=== PATIENT | male | born 1955 | race Caucasian/White ===

== ENCOUNTER 2022-10-06 14:47 | Outpatient (REF) | payer OTHER, SELFPAY ==
[2022-10-06 16:33] LABS: MANUAL DIFF FLAG NO
[2022-10-06 16:34] LABS: Basophils Absolute Auto 0.1 X10*3/uL (0.0-0.2); Basophils Percent Auto 0.9 % (0-2); Eosinophils Absolute Auto 0.2 X10*3/uL (0.0-0.4); Hematocrit 38.1 % (42.0-52.0); Hemoglobin 12.4 g/dl (14.0-18.0); Imm Gran Abs Auto 0.02 X10*3/uL (0.00-0.03); Imm Gran Pct Auto 0.3 % (0.0-0.4); Lymphocytes Absolute Auto 2.2 X10*3/uL (1.2-4.9); Lymphocytes Percent Auto 28.2 % (20-40); Mean Corpuscular HGB Conc 32.5 g/dl (31.0-36.0); Mean Corpuscular Hemoglobin 28.8 pg (27.0-33.0); Mean Corpuscular Volume 88.6 fL (80.0-98.0); Mean Platelet Volume 11.3 fL (9.4-12.4); Monocytes Absolute Auto 0.4 X10*3/uL (0.1-1.2); Monocytes Percent Auto 5.5 % (2-11); Neutrophils Absolute Auto 4.7 x10*3/uL (2.0-8.3); Neutrophils Percent Auto 62.1 % (45-73); Platelet Count 161 X10*3/uL (160-400); Red Cell Distribution Width 13.3 % (11.0-16.0); White Blood Count 7.6 X10*3/uL (4.8-10.8)
[2022-10-06 16:42] LABS: Estimated Average Glucose 217 mg/dL; Hemoglobin A1c % 9.2 %
[2022-10-06 16:53] LABS: Alanine Aminotransferase 27 U/L (0-40); Albumin Level 4.5 g/dL (3.5-5.0); Alkaline Phosphatase 95 U/L (39-117); Anion Gap 13 (12-20); Aspartate Amino Transferase 24 U/L (5-37); Bilirubin Total 0.6 mg/dL (0.0-1.0); Blood Urea Nitrogen 10 mg/dL (9-16); Calcium 9.6 mg/dL (8.4-10.2); Carbon Dioxide 28 mmol/L (22-29); Chloride 105 mmol/L (96-108); Cholesterol 129 mg/dL; Estimated Glomerular Filt Rate > 60; Glucose Fasting 128 mg/dL (60-99); HDL Cholesterol 27 mg/dL; LDL Cholesterol Calculated 46 mg/dl; Potassium 4.3 mmol/L (3.3-5.1); Sodium 142 mmol/L (135-145); Total Protein 7.2 g/dL (6.5-8.0); Triglycerides 284 mg/dL
[2022-10-06 16:58] LABS: Appearance Urine Clear; Color Urine Yellow; Glucose Urine UA Negative (Negative); Leukocyte Esterase Urine Negative (Negative); Nitrite Urine Negative (Negative); PH 6.5 (5.0-9.0); Specific Gravity - Urine 1.015 (1.005-1.025); Urine Blood Negative (Negative); Urine Ketones Negative (Negative); Urine Protein Negative (Neg-Trace)
[2022-10-06 17:08] LABS: Prostate Specific Antigen Scr 1.73 ng/mL (<0.05-4.0); TSH reflex Free T4 2.07 uIU/mL (0.32-4.0)
[2022-10-06 17:14] LABS: Creatinine Urine 114.43 mg/dL; Microalbum/Creatinine Ratio Ur 8.7 ug/mg cr
== END 2022-10-06 14:48 | disposition home or self-care (01) ==
LOC: HO.HMGCLDS 14:47
PROVIDERS: PCP Nurse Practitioner Family; Visit Provider Nurse Practitioner Family
DX: E11.9 Type 2 diabetes mellitus without complications (principal); Z12.5 Encounter for screening for malignant neoplasm of prostate
CPT/HCPCS: 36415; 80053; 80061; 81003; 82043; 83036; 84153; 84443; 85025

== ENCOUNTER 2022-12-08 15:52 | Outpatient (REF) | payer MEDICARE, SELFPAY ==
--- NOTE | ~2022-12-08 | XR_ITS ---
EXAMINATION: XR CHEST CLINICAL INFORMATION: Personal history of pneumonia COMPARISON: 01/24/2020 TECHNIQUE: 2 views of the chest were obtained. FINDINGS: The lungs are well expanded. Mild elevation of the right hemidiaphragm. Chronic blunting at the right costophrenic angle suggestive of pleural thickening. No definite pleural effusion seen on the lateral view. No consolidation. No edema. No pneumothorax. The cardiac mediastinal silhouette is within normal limits. Degenerative changes throughout the spine. XR/XR chest 2V IMPRESSION: No acute pulmonary finding. Chronic blunting at the right costophrenic angle suggestive of pleural thickening.
== END 2022-12-08 15:53 | disposition home or self-care (01) ==
LOC: HO.HMGCX 15:52
PROVIDERS: PCP Nurse Practitioner Family; Visit Provider Nurse Practitioner Family
DX: Z87.01 Personal history of pneumonia (recurrent) (principal)
CPT/HCPCS: 71046

== ENCOUNTER 2023-01-11 14:41 | Outpatient (REF) | payer MEDICARE, SELFPAY ==
--- NOTE | ~2023-01-11 | XR_ITS ---
EXAMINATION: XR RIBS, RIGHT CLINICAL INFORMATION: Chest wall pain COMPARISON: Previous chest x-rays most recent December 2022 TECHNIQUE: 3 views of the right ribs were obtained. FINDINGS: The cardiac and mediastinal contours are stable. The lungs are clear. There is blunting of the right lateral costophrenic angle. This is similar to previous chest x-rays and probably represents pleural thickening. No definite pleural effusion. No pneumothorax. There is abnormal appearance to the right posterior seventh rib, question related to old or healing fracture. There are degenerative changes of the spine. XR/XR ribs RT min 3V w CXR1V IMPRESSION: Stable blunting of the right lateral costophrenic angle probably representing pleural thickening. Probable old or healing right posterior seventh rib fracture.
--- NOTE | ~2023-01-11 | XR_ITS ---
EXAMINATION: XR KNEE, LEFT CLINICAL INFORMATION: Pain COMPARISON: None available. TECHNIQUE: Four views of the left knee. FINDINGS: Bone alignment is normal. No fracture or dislocation. Degenerative changes at the proximal tibiofibular joint. Small osteophytes at the patellofemoral joint. Small osteophytes at the quadriceps tendon insertion to the patella and patellar tendon origin. No joint effusion. XR/XR knee LT 4V IMPRESSION: Degenerative changes.
== END 2023-01-11 14:42 | disposition home or self-care (01) ==
LOC: HO.HMGCX 14:41
PROVIDERS: PCP Nurse Practitioner Family; Visit Provider Nurse Practitioner Family
DX: R07.81 Pleurodynia (principal); M25.562 Pain in left knee
CPT/HCPCS: 71101; 73564

== ENCOUNTER → 2023-02-02 10:57 | Outpatient (REF) | payer MEDICARE, SELFPAY ==
--- NOTE | 2023-02-02 10:59 | CA_ITS ---
Transthoracic Echocardiogram Patient (Last, First, Middle): Javon Forman E Gender: Male Date of : 1955 Age: 67 Procedure Date: 02/02/2023 Procedure Type: Transthoracic Echocardiogram Location: OP Height: 180.34 cm Weight: 129.28 kg BSA: 2.45 m2 Heart Rate: bpm BP: 128 / 80 mmHg Track Superintendent: Referring MD: Rod Valencia [facility] Windows Systems Administrator: Raffi Carmen MD Symptoms: R01.1 - Cardiac murmur, unspecified Study Quality: Fair ECG Rhythm: Sinus Conclusions: - 1. Technically limited study due to body habitus, contrast could not be used due to difficult IV 2. Normal LV systolic function with mild LVH with LVEF of 55-60% with impaired relaxation filling pattern 3. Normal cardiac valvular Doppler 4. Normal RV systolic pressure 5. No gross pericardial effusion Findings Left Ventricle Normal left ventricular size and systolic function. There is mildly increased left ventricular wall thickness. The visually estimated ejection fraction is between 55-60%. Regional wall motion abnormalities can not be excluded due to suboptimal endocardial definition. Spectral Doppler is indicative of an impaired relaxation filling pattern. E/E prime ratio is between 8 and 15 consistent with indeterminate filling pressures. Right Ventricle Normal right ventricular cavity size. Atria The left atrium is normal in size. There is lipomatous hypertrophy of the interatrial septum. There is no evidence of interatrial shunt. The right atrium was not well visualized. Aortic Valve The aortic valve structure and function is likely normal. There is no aortic valve stenosis. There is no aortic valve regurgitation. Mitral Valve There is mild anterior and posterior mitral leaflet thickening. There is mild mitral annular calcification. There is trace mitral valve regurgitation. There is no mitral valve stenosis. Pulmonic Valve The pulmonic valve was not well visualized. Tricuspid Valve Likely normal tricuspid valve structure and function. There is trace tricuspid valve regurgitation. The right ventricular systolic pressure is normal. The right ventricular systolic pressure is 14 mmHg. Normal right atrial pressure. There is no evidence of pulmonary hypertension. Great Vessels All visible segments of the aorta are normal in size. The pulmonary artery was not well visualized. Venous The inferior vena cava is normal in size and collapses greater than 50% with inspiration. Pericardium/Pleural There is no evidence of pericardial effusion. Prior Study Comparison No significant change compared to prior study dated: 04/05/2017. Measurements 2D Linear Measurements IVSd: 1.34 0.6-0.9/0.6-1.0 cm LVIDd: 4.53 3.9-5.3/4.2-5.9 cm LVIDd Index: 1.85 2.4-3.2/2.2-3.1 cm/m2 LVIDs: 2.88 2.0-3.6 cm LVPWd: 1.31 0.7-1.1 cm Ao Root: 3.10 2.1-3.5 cm LA Diam: 4.00 2.7-3.8/3.0-4.0 cm LAIDs Index: 1.63 1.5-2.3 cm/m2 LV Mass: 288.27 67-162/88-224 g LV Mass Index: 117.66 43-95/49-115 g/m2 LVOT Diam: 2.10 3.0+(-)1.3 cm 2D Systolic Function EF 4C: 56.30 >55% EF 2C: 53.00 >55% Mitral Valve MV Pk E: 0.78 MV PK A: 1.17 MV Decel Time: 152.00 E/A: 0.70 E'Lateral: 7.94 E'Medial: 5.11 E/E' Med: 15.30 E/E' Lat: 9.90 PHT: 45.00 MVA PHT: 4.89 Decel Hudspeth: 5.15 Aortic Valve AoV Pk Richard: 1.51 AoV Mn Richard: 0.91 AoV VTI: 0.31 AoV Pk Grad: 9.00 Aov Mn Grad: 4.00 VANCE Cont.VTI: 1.85 LVOT LVOT Pk Richard: 0.82 LVOT Mn Richard: 0.51 LVOT VTI: 0.17 LVOT Pk Grad: 3.00 LVOT Mn Grad: 1.00 LVOT Diam: 2.10 LVOT Area: 3.46 Diastolic Function MV Pk E: 0.78 MV Pk A: 1.17 E/A: 0.70 E'Medial: 5.11 E/E' Med: 15.30 E' Laterial: 7.94 E/E' Lat: 9.90 Right Ventricle TVS' Irchard: 14.00 Tricuspid Valve TR Pk Richard: 1.69 TR Pk Grad: 11.00 RA Press: 3.00 RVSP: 14.00 Great Vessels Aorta Ao Root-2D: 3.10 2.0-3.7 cm Ao Asc: 2.70 2.1-3.4 cm Pulmonary Valve PV Pk Richard: 0.78 Peak PV Grad: 2.00 Updated in Other Vendor System with Status of Final Raffi Carmen MD electronically signed on 02/03/2023 4:00:33 PM with status of Final
== END ==
LOC: HO.CARD 10:57
PROVIDERS: PCP Nurse Practitioner Family; Visit Provider Nurse Practitioner Family
DX: R01.1 Cardiac murmur, unspecified (principal)
CPT/HCPCS: 93306

== ENCOUNTER 2023-03-26 11:49 | Outpatient (REF) | payer MEDICARE, SELFPAY ==
[2023-03-26 13:50] LABS: MANUAL DIFF FLAG NO
[2023-03-26 13:57] LABS: Basophils Absolute Auto 0.1 X10*3/uL (0.0-0.2); Eosinophils Absolute Auto 0.2 X10*3/uL (0.0-0.4); Eosinophils Percent Auto 3.7 % (0-4); Hematocrit 39.9 % (42.0-52.0); Hemoglobin 12.6 g/dl (14.0-18.0); Imm Gran Abs Auto 0.01 X10*3/uL (0.00-0.03); Imm Gran Pct Auto 0.2 % (0.0-0.4); Lymphocytes Percent Auto 33.2 % (20-40); Mean Corpuscular HGB Conc 31.6 g/dl (31.0-36.0); Mean Corpuscular Hemoglobin 28.4 pg (27.0-33.0); Mean Corpuscular Volume 89.9 fL (80.0-98.0); Mean Platelet Volume 11.3 fL (9.4-12.4); Monocytes Absolute Auto 0.4 X10*3/uL (0.1-1.2); Monocytes Percent Auto 7.1 % (2-11); Neutrophils Absolute Auto 3.3 x10*3/uL (2.0-8.3); Neutrophils Percent Auto 54.8 % (45-73); Platelet Count 175 X10*3/uL (160-400); Red Blood Count 4.44 X10*6/uL (4.60-5.80); Red Cell Distribution Width 13.2 % (11.0-16.0)
[2023-03-26 14:44] LABS: Iron 70 mcg/dL (45-160); Percent Iron Saturation 22 % (15-50); Total Iron Binding Capacity 312 mcg/dL (228-428); Unsaturated Iron Binding 242 ug/dL
[2023-03-26 14:48] LABS: Ferritin 22 ng/mL (20-250)
[2023-03-26 14:55] LABS: Folate 18.5 ng/mL (> or = 4.0); Vitamin B12 439 pg/mL (200-900)
[2023-03-26 17:39] LABS: Estimated Average Glucose 169 mg/dL; Hemoglobin A1c % 7.5 %
== END 2023-03-26 11:50 | disposition home or self-care (01) ==
LOC: HO.HMGCLDS 11:49
PROVIDERS: PCP Nurse Practitioner Family; Visit Provider Nurse Practitioner Family
DX: E11.65 Type 2 diabetes mellitus with hyperglycemia (principal); D64.9 Anemia, unspecified
CPT/HCPCS: 36415; 82607; 82728; 82746; 83036; 83540; 85025

== ENCOUNTER 2023-04-12 12:44 | Outpatient (AMB) | payer MEDICARE, SELFPAY ==
--- NOTE | 2023-04-12 12:46 | MHC.PC.OV ---
Vital Signs 04/12/23 12:49 Height 6 ft 1 in Weight 275 lb BMI 36.3 BP 122/72 Blood Pressure Location Lt brachial Position Sitting Pulse 84 Pulse Source Pulse Oximeter Pulse Oximetry (%) 96 Oxygen Delivery Method Room Air Intake Visit Reasons: 3m follow up Intake Note: Pt is here today for his 3 mo. f/u Allergies No Known Allergies [No Known Allergies*] Allergy (Verified 04/12/23 15:02) Medication List - Last Reconciled 04/12/23 by ANDRZEJ Monae aspirin 81 mg PO DAILY 90 days atorvastatin 80 mg PO DAILY 90 days blood sugar diagnostic ([employer] Verio test strips) 1 strip miscellaneous BID 50 days cholecalciferol (vitamin D3) 25 mcg PO DAILY empagliflozin (Jardiance) 10 mg PO DAILY 90 days insulin degludec (Tresiba FlexTouch U-100 insulin) 48 units (0.48 mL) subcut DAILY ketoconazole 2% appl topical DAILY lancets ([employer] Delica Plus Lancet) 30 gauge miscellaneous BID 30 days lisinopril 2.5 mg PO DAILY 90 days metformin 1,000 mg PO BID 90 days multivitamin (Daily Multi-Vitamin tablet) 1 tab PO DAILY pen needle, diabetic (BD Ultra-Fine Mini Pen Needle) 1 ea miscellaneous DAILY 90 days prednisone 50 mg PO DAILY 6 days zinc gluconate 30 mg PO DAILY Tobacco use date assessed: 04/12/23 Fall risk assessment: No Falls in past year Last assessed Fall Risk: 04/12/23 Dental Screening Dental Screen Date: 04/12/23 Did you have a dental visit in the last 12 months?: No HPI 3m follow up HPI Details Pt is a diabetic, on an GIULIANA and a statin. Last A1c was 7.5, microalbumin is up to date. Denies polyuria, polydipsia, and neuropathy. Pt denies any signs and symptoms of hypoglycemia and does know how to correct it. Pt c/o cervical neck pain. He report radicular symptoms down his LUE. Will order xr. He also reports lower back pain. Will send prednisone. denies s/s of cauda equina, no radicular symptoms down BLE. [facility] Medical History (Updated 04/12/23 @ 13:17 by ANDRZEJ Monae) Anemia Family History Son Substance use disorder Family/Other Mental health disorder Social History Housing: House Alcohol intake: former Patient Tobacco Use Status: Former Tobacco user e-Cigarette/Vaping Use: Never Used Second Hand Smoke Exposure: No service: No Current occupational status: employed Current occupation: [employer] Current occupational exposures/hazards: Yes Cognitive needs: No Hearing needs: No Vision needs: Yes Questionnaire Thrive Questionnaire Date Thrive assessed: 10/12/22 AUDIT C Alcohol Use Questionnaire (AUDIT-C) 1. How often do you have a drink containing alcohol?: Never Total Score: 0 PAULINA-7 AMB Questionnaire PAULINA-7 Date PAULINA - 7 assessed: 10/12/22 Source: Developed by Drs. Dain Scott, Aruna Mcfarland, Andrea Mir and colleagues, with an educational briana from [employer]. Review of Systems Const Reports as per HPI Physical exam (Primary Care) Vital Signs: Last Vital Signs Pulse 84 04/12/23 12:49 BP 122/72 04/12/23 12:49 Pulse Ox 96 04/12/23 12:49 Oxygen Delivery Method Room Air 04/12/23 12:49 BMI result Body Mass Index 36.3 Tobacco/Smoking Status: Tobacco use Status Tobacco use date assessed 04/12/23 04/12/23 12:53 Patient Tobacco Use Status Former Tobacco user 04/12/23 12:47 e-Cigarette/Vaping Use Never Used 04/12/23 12:47 Thrive Assessment: Date of Thrive Assessment Date Thrive assessed 10/12/22 04/12/23 12:47 Const General: cooperative Nutritional Appearance: obese Orientation/consciousness: patient oriented x3 Resp Effort & Inspection: normal respiratory effort Auscultation: clear to auscultation bilaterally Cardio Rate: regular rate Rhythm: regular rhythm Heart sounds: S1 normal heart sound present and S2 normal heart sound present Back/Spine/Pelvis Other: - spurlings, pain noted with shooting pain down LUE with turning head side to side and with neck flexion Neuro General: patient oriented x3 Extrem Other: bilat feet: + sensation with use of monofilament, onychomycosis noted bilat Psych Appearance: grossly normal Mental Status: mental status grossly normal Speech and movement: Normal speech and movement present Affect: normal affect Attitude: cooperative Thought process: Normal thought process present Thought content: Normal thought content present Insight: Good insight present (Psych) Judgement: Good judgement present (Psych) Assessment and Plan Assessment & Plan (1) Uncontrolled diabetes mellitus with hyperglycemia: Code(s): E11.65 - Type 2 diabetes mellitus with hyperglycemia Plan: Labs ordered (2) Cervical back pain with evidence of disc disease: Code(s): M50.90 - Cervical disc disorder, unspecified, unspecified cervical region Plan: XR ordered Plan The patient agreed to the use of a nuclear medical technologist for this encounter. Scribed for ANDRZEJ Adams by Pratibha Presley nuclear medical technologist, on 04/12/2023 at 13:10 EST. Orders: Orders Comprehensive [place]. Panel Fast Today E11.65 - Type 2 diabetes mellitus with hyperglycemia Hemoglobin A1c Today E11.65 - Type 2 diabetes mellitus with hyperglycemia TSH reflex Free T4 Today E11.65 - Type 2 diabetes mellitus with hyperglycemia Complete Blood Count Auto Diff Today E11.65 - Type 2 diabetes mellitus with hyperglycemia UA CC w/rflx Micro + Cult Today E11.65 - Type 2 diabetes mellitus with hyperglycemia XR cervical spine 3V Today M50.90 - Cervical disc disorder, unspecified, unspecified cervical region Medications: New prednisone 50 mg PO DAILY 6 tabs 0RF 6 days Coding Level of Care Code Est Pt Level 3 (36384) Diagnoses Uncontrolled diabetes mellitus with hyperglycemia E11.65 Cervical back pain with evidence of disc disease M50.90
[2023-04-12 12:49] VITALS: BP 122/72; PULSE 84; O2SAT 96; BMI 36.3
== END 2023-04-12 13:32 | disposition home or self-care (01) ==
PROVIDERS: PCP Nurse Practitioner Family; Visit Provider Nurse Practitioner Family
DX: E11.65 Type 2 diabetes mellitus with hyperglycemia (principal); M50.90 Cervical disc disorder, unspecified, unspecified cervical region
CPT/HCPCS: 99213

== ENCOUNTER 2023-04-12 13:33 | Outpatient (REF) | payer MEDICARE, SELFPAY ==
--- NOTE | ~2023-04-12 | XR_ITS ---
EXAMINATION: XR CERVICAL SPINE CLINICAL INFORMATION: Cervical disc disorder COMPARISON: 08/22/2019 TECHNIQUE: 3 views of the cervical spine were obtained. FINDINGS: There is no prevertebral soft tissue swelling. There is mild straightening of the normal cervical lordosis possibly due to positioning or muscular spasm. Multilevel degenerative changes are again seen with prominent anterior osteophyte formation at multiple levels. Vertebral body heights and disc heights are preserved. No acute fracture or spondylolisthesis. Incidental nuchal calcification again noted. XR/XR cervical spine 3V IMPRESSION: Multilevel degenerative changes similar to the prior study. No acute fracture or spondylolisthesis.
== END 2023-04-12 13:34 | disposition home or self-care (01) ==
LOC: HO.HMGCX 13:33
PROVIDERS: PCP Nurse Practitioner Family; Visit Provider Nurse Practitioner Family
DX: M50.90 Cervical disc disorder, unspecified, unspecified cervical region (principal)
CPT/HCPCS: 72040

== ENCOUNTER 2023-05-03 10:08 | Day surgery (SDC) | payer MEDICARE, SELFPAY ==
--- NOTE | 2023-04-30 12:15 | HO.ANESPROP2 ---
Documented by User: Jordyn Johnson NP 04/30/23 12:18 [facility] Active Problems Active Problems: All Active Problems (Updated 04/12/23 @ 13:17 by ANDRZEJ Monae) Cervical back pain with evidence of disc disease (Acute) Left knee pain (Acute) Rib pain on right side (Acute) Anemia (Acute) Systolic murmur (Acute) Uncontrolled diabetes mellitus with hyperglycemia (Acute) Screening for colon cancer (Acute) Physical exam (Acute) Gingivitis (Acute) Onychomycosis (Acute) Overgrown toenails (Acute) Screening PSA (prostate specific antigen) (Acute) Diabetes (Acute) Past Medical History Medical History (Updated 04/30/23 @ 12:18 by Jordyn Johnson NP) Anemia Diabetes HLD (hyperlipidemia) HTN (hypertension) Family History Family History Son Substance use disorder Family/Other Mental health disorder Surgical History Surgical History (Updated 04/30/23 @ 12:18 by Jordyn Johnson NP) History of surgical removal of pilonidal cyst S/P thoracotomy (~1995) Social History Social History Housing: House Alcohol intake: former Patient Tobacco Use Status: Former Tobacco user e-Cigarette/Vaping Use: Never Used Second Hand Smoke Exposure: No Are you DNR?: No Advance Directives: No Advance Directives Information Provided: Yes service: No Current occupational status: employed Current occupation: [employer] Current occupational exposures/hazards: Yes Cognitive needs: No Hearing needs: No Vision needs: Yes Meds Allergies Allergy/AdvReac Type Severity Reaction Status Date / Time No Known Allergies Allergy Verified 04/12/23 15:02 [No Known Allergies*] Home Medications Medication Instructions Recorded Confirmed Last Taken Type cholecalciferol (vitamin D3) 25 25 mcg PO DAILY 01/11/23 04/12/23 Unknown History mcg (1,000 unit) capsule multivitamin (Daily Multi-Vitamin 1 tab PO DAILY 01/11/23 04/12/23 Unknown History tablet) zinc gluconate 30 mg tablet 30 mg PO DAILY 01/11/23 04/12/23 Unknown History ketoconazole 2 % topical cream appl topical DAILY 04/12/23 04/12/23 Unknown History Exam Exam Date and Time: April 30, 2023 1215 Pertinent Lab Results Pertinent Lab Results: Laboratory Tests 10/06/22 03/26/23 14:55 11:54 WBC 6.0 Hgb 12.6 L Hct 39.9 L Plt Count 175 Sodium 142 Potassium 4.3 Chloride 105 Carbon Dioxide 28 BUN 10 Creatinine 0.84 Narrative Narrative: ECHO 02/2023 Conclusions: - 1. Technically limited study due to body habitus, contrast ? ? could not be used due to difficult IV? 2. Normal LV systolic function with mild LVH with LVEF of 55-60% with impaired relaxation filling pattern ? 3. Normal cardiac valvular Doppler ? 4. Normal RV systolic pressure ? 5. No gross pericardial effusion ? EKG 01/2023 NSR @ 82 Assessment and Plan Assessment Anesthesia Assessment: Chart Reviewed Documented by User: Christel Iniguez MD 05/03/23 12:44 PMFSH Past Medical History Medical History (Updated 04/30/23 @ 12:18 by Jordyn Johnson NP) Anemia Diabetes HLD (hyperlipidemia) HTN (hypertension) Family History Family History Son Substance use disorder Family/Other Mental health disorder Family history of problems with anesthesia: No Surgical History Surgical History (Updated 04/30/23 @ 12:18 by Jordyn Johnson NP) History of surgical removal of pilonidal cyst S/P thoracotomy (~1995) History of Problems with Anesthesia: No Social History Social History Housing: House Alcohol intake: former Patient Tobacco Use Status: Former Tobacco user e-Cigarette/Vaping Use: Never Used Second Hand Smoke Exposure: No Are you DNR?: No Advance Directives: No Advance Directives Information Provided: Yes service: No Current occupational status: employed Current occupation: [employer] Current occupational exposures/hazards: Yes Cognitive needs: No Hearing needs: No Vision needs: Yes Meds Allergies Allergy/AdvReac Type Severity Reaction Status Date / Time No Known Allergies Allergy Verified 04/12/23 15:02 [No Known Allergies*] Home Medications Medication Instructions Recorded Confirmed Last Taken Type cholecalciferol (vitamin D3) 25 25 mcg PO DAILY 01/11/23 04/12/23 Unknown History mcg (1,000 unit) capsule multivitamin (Daily Multi-Vitamin 1 tab PO DAILY 01/11/23 04/12/23 Unknown History tablet) zinc gluconate 30 mg tablet 30 mg PO DAILY 01/11/23 04/12/23 Unknown History ketoconazole 2 % topical cream appl topical DAILY 04/12/23 04/12/23 Unknown History Exam Airway Mallampati Class: II TM Dist: >3cm Neck ROM: Full Loose/Missing/Broken Teeth: Yes (overall poor some loose patient warned of increase risk of dental injury) Heart: rr Lungs: cta Assessment and Plan Assessment Anesthesia Assessment: Anesthesia Plan Discussed Final Anesthetic Review Family History of Problems with Anesthesia: No History of Problems with Anesthesia: No NPO: Yes ASA Class: II and III Final Preanesthetic Review: No Changes in Pt Med Stat, Meds/Allgs Chart Reviewed, Consent Obtained/Reviewed and Anes Risks/Benef Reviewed Patient Risk: Intermediate Procedure Risk: Low Anesthetic Plan Anesthetic Plan: MAC: Disposition: Standard PACU
[2023-05-03 11:17] VITALS: BMI 36.9
[2023-05-03 11:26] LABS: Glucose, Whole Blood 125 mg/dL (60-115)
[2023-05-03 11:31] VITALS: BP 155/86; PULSE 83; RESP 19; TEMP 36.6; O2SAT 96
[2023-05-03] MEDS: Lactated Ringers 1,000 ML 100 ML IVCONT (11:39)
[2023-05-03 13:15] VITALS: BP 129/70; PULSE 86; RESP 16; TEMP 36.6; O2SAT 96
--- NOTE | 2023-05-03 13:18 | PM.OP ---
Brief Operative Note Date of Service: 05/03/23 Pre-op diagnosis: Screening Post-op diagnosis: other (Polyp) Procedure: Colonoscopy to the cecum with bx/removal of poyp Surgeon: Dain Dunham Anesthesia: MAC Was an Placement Director used for this Procedure?: No Estimated blood loss (mL): 2.0 Pathology: other (A. Polyp at 50cm) Condition: stable Disposition: PACU
[2023-05-03 13:30] VITALS: BP 129/78; PULSE 78; RESP 18; TEMP 36.6; O2SAT 96
--- NOTE | 2023-05-03 23:38 | OP_ITS ---
DATE OF SERVICE: 05/03/2023 SURGEON: Dain Dunham MD INDICATIONS: The patient presents for followup of personal history of tubular adenoma of the colon and colorectal cancer screening. Full consent has been obtained from him for this, including risks of bleeding and perforation. PREOPERATIVE DIAGNOSIS: Colorectal cancer screening and personal history of tubular adenoma of the colon. POSTOPERATIVE DIAGNOSIS: PROCEDURE PERFORMED: Colonoscopy to cecum with biopsy and removal of polyp. ESTIMATED BLOOD LOSS: COMPLICATIONS: ANESTHESIA: Monitored anesthesia care. ASSISTANTS: SPECIMENS: POSTOPERATIVE DIAGNOSES: Colorectal cancer screening and personal history of tubular adenoma of the colon, colon polyp, diverticulosis, and internal hemorrhoids. DESCRIPTION OF PROCEDURE: The patient was placed in the left lateral decubitus position. The digital rectal exam revealed no abnormalities. The Olympus video pediatric colonoscope was entered into the rectum and advanced to the cecum with the assistance of abdominal wall pressure. Once in the cecum, I did identify normal-appearing cecal pouch with appendiceal orifice and a normal-appearing ileocecal valve. The entire cecum appeared normal. The scope was slowly withdrawn assessing all mucosal surfaces carefully. Preparation was excellent. At 50 cm was an approximately 4 mm polyp, which was biopsied and completely removed with a cold biopsy forceps. I did not visualize any other polyps, colitis, nor angiodysplasia. There was a mild amount of sigmoid diverticulosis. In the rectum, the scope was retroflexed visualizing internal hemorrhoids, but no other pathology. The rectal mucosa appeared normal. The scope was straightened and withdrawn from the patient. He tolerated the procedure well and was returned to the recovery area in stable condition. IMPRESSION: 1. Small colon polyp. 2. Diverticulosis. 3. Internal hemorrhoids. PLAN: The results of the pathology will be checked. I would recommend a repeat colonoscopy in 5 years. He will otherwise see me on a p.r.n. basis. He was advised not to use any aspirin or NSAIDs for 1 week. Dain Dunham MD RMWinter/NASREENL / [id number]
== END 2023-05-03 13:56 | disposition home or self-care (01) ==
PROVIDERS: PCP Nurse Practitioner Family; Visit Provider Internal Medicine
PROC: 0DJD8ZZ Inspection of Lower Intestinal Tract, Via Natural or Artificial Opening Endoscopic (ICD-10-PCS; CPT 45378; principal; 2023-05-03 11:30)
DX: Z12.11 Encounter for screening for malignant neoplasm of colon (principal); D12.5 Benign neoplasm of sigmoid colon; K57.30 Diverticulosis of large intestine without perforation or abscess without bleeding; K64.8 Other hemorrhoids; Z86.010 Personal history of colon polyps; E11.9 Type 2 diabetes mellitus without complications; I10 Essential (primary) hypertension; E78.5 Hyperlipidemia, unspecified; Z79.4 Long term (current) use of insulin; Z79.899 Other long term (current) drug therapy
CPT/HCPCS: 45380; 82947; 88305

== ENCOUNTER 2023-05-31 10:35 | Outpatient (REF) | payer MEDICARE, SELFPAY ==
[2023-05-31 12:58] LABS: MANUAL DIFF FLAG NO
[2023-05-31 13:16] LABS: Basophils Absolute Auto 0.1 X10*3/uL (0.0-0.2); Basophils Percent Auto 0.8 % (0-2); Eosinophils Absolute Auto 0.3 X10*3/uL (0.0-0.4); Eosinophils Percent Auto 5.3 % (0-4); Hematocrit 38.2 % (42.0-52.0); Imm Gran Abs Auto 0.01 X10*3/uL (0.00-0.03); Imm Gran Pct Auto 0.2 % (0.0-0.4); Lymphocytes Absolute Auto 2.1 X10*3/uL (1.2-4.9); Mean Corpuscular HGB Conc 31.4 g/dl (31.0-36.0); Mean Corpuscular Hemoglobin 27.8 pg (27.0-33.0); Mean Corpuscular Volume 88.6 fL (80.0-98.0); Mean Platelet Volume 11.4 fL (9.4-12.4); Monocytes Absolute Auto 0.4 X10*3/uL (0.1-1.2); Monocytes Percent Auto 6.8 % (2-11); Neutrophils Absolute Auto 3.1 x10*3/uL (2.0-8.3); Neutrophils Percent Auto 51.9 % (45-73); Platelet Count 146 X10*3/uL (160-400); Red Blood Count 4.31 X10*6/uL (4.60-5.80); Red Cell Distribution Width 13.8 % (11.0-16.0); White Blood Count 6.1 X10*3/uL (4.8-10.8)
[2023-05-31 13:22] LABS: Estimated Average Glucose 174 mg/dL; Hemoglobin A1c % 7.7 % (<6.0)
[2023-05-31 13:24] LABS: Alanine Aminotransferase 20 U/L (0-40); Alkaline Phosphatase 78 U/L (39-117); Anion Gap 11 (12-20); Aspartate Amino Transferase 19 U/L (5-37); Bilirubin Total 0.4 mg/dL (0.0-1.0); Blood Urea Nitrogen 13 mg/dL (9-16); Calcium 9.2 mg/dL (8.4-10.2); Carbon Dioxide 28 mmol/L (22-29); Chloride 108 mmol/L (96-108); Estimated Glomerular Filt Rate > 60; Glucose Fasting 125 mg/dL (60-99); Potassium 4.6 mmol/L (3.3-5.1); Sodium 142 mmol/L (135-145); Total Protein 6.8 g/dL (6.5-8.0)
[2023-05-31 14:00] LABS: Appearance Urine Clear; Color Urine Yellow; Glucose Urine UA Negative (Negative); Leukocyte Esterase Urine Negative (Negative); Nitrite Urine Negative (Negative); PH 5.5 (5.0-9.0); Specific Gravity - Urine 1.015 (1.005-1.025); Urine Blood Negative (Negative); Urine Ketones Negative (Negative); Urine Protein Negative (Neg-Trace)
== END 2023-05-31 10:36 | disposition home or self-care (01) ==
LOC: HO.HMGCLDS 10:35
PROVIDERS: PCP Nurse Practitioner Family; Visit Provider Nurse Practitioner Family
DX: E11.65 Type 2 diabetes mellitus with hyperglycemia (principal)
CPT/HCPCS: 36415; 80053; 81003; 83036; 84443; 85025

== ENCOUNTER 2023-06-08 10:41 | Outpatient (AMB) | payer MEDICARE, SELFPAY ==
[2023-06-08 11:20] VITALS: BP 108/60; PULSE 77; O2SAT 97; BMI 36.5
--- NOTE | 2023-06-08 11:20 | A.OFFPC_ITS ---
Vital Signs 06/08/23 11:20 Height 6 ft 1 in Weight 276 lb 6 oz BMI 36.5 BP 108/60 Blood Pressure Location Lt brachial Position Sitting Pulse 77 Pulse Source Pulse Oximeter Pulse Oximetry (%) 97 Oxygen Delivery Method Room Air Intake Visit Reasons: ANNUAL PE Intake Note: pt is here for a PE Allergies No Known Allergies [No Known Allergies*] Allergy (Verified 06/08/23 11:22) Medication List - Last Reconciled 06/08/23 by LORNE Monae aspirin 81 mg PO DAILY 90 days atorvastatin 80 mg PO DAILY 90 days blood sugar diagnostic ([employer] Verio test strips) 1 strip miscellaneous BID 50 days cholecalciferol (vitamin D3) 25 mcg PO DAILY insulin degludec (Tresiba FlexTouch U-100 insulin) 48 units (0.48 mL) subcut DAILY ketoconazole 2% appl topical DAILY lancets ([employer] Delica Plus Lancet) 30 gauge miscellaneous BID 30 days lisinopril 2.5 mg PO DAILY 90 days metformin 1,000 mg PO BID 90 days multivitamin (Daily Multi-Vitamin tablet) 1 tab PO DAILY pen needle, diabetic (BD Ultra-Fine Mini Pen Needle) 1 ea miscellaneous DAILY 90 days zinc gluconate 30 mg PO DAILY Tobacco use date assessed: 06/08/23 Fall risk assessment: No Falls in past year Last assessed Fall Risk: 06/08/23 Dental Screening Dental Screen Date: 06/08/23 Did you have a dental visit in the last 12 months?: No Did you have a dental problem in the last 6 months where you did not have access to dental care?: No Was dental information given to patient?: No HPI ANNUAL PE HPI Details Pt is here for a PE. Labs were already performed. Colon screen is up to date. PSA is up to date. Pt is a diabetic, on an GIULIANA and a statin. Last A1C was 7.7, microalbumin is up to date. Denies polyuria, polydipsia, and neuropathy. Pt denies any signs and symptoms of hypoglycemia and does know how to correct it. Will increase tresiba from 48 to 52 units. Pt reports that GLP1 agonist caused stomach issues and farxiga was too expensive. Pt c/o ongoing cervical neck pain with radicular symptoms own his LUE. He had a previous xr which showed multilevel degenerative changes similar to the prior study. No acute fracture or spondylolisthesis. Pt has gone to PT approximately 2 years ago which made the pain worse. Will order MRI. Pt also c/o lower back pain. He denies any radicular symptoms. Will refer to chiropractor pet pt's request. Denies any signs of cauda equina. [facility] Medical History (Updated 06/08/23 @ 11:47 by ANDRZEJ Monae) Anemia Diabetes HLD (hyperlipidemia) HTN (hypertension) Surgical History (Updated 04/30/23 @ 12:18 by Jordyn Johnson NP) History of surgical removal of pilonidal cyst S/P thoracotomy (~1995) Family History Son Substance use disorder Family/Other Mental health disorder Social History Housing: House Alcohol intake: former Patient Tobacco Use Status: Former Tobacco user e-Cigarette/Vaping Use: Never Used Second Hand Smoke Exposure: No service: No Current occupational status: employed Current occupation: [employer] Current occupational exposures/hazards: Yes Cognitive needs: No Hearing needs: No Vision needs: Yes Questionnaire Thrive Questionnaire Date Thrive assessed: 10/12/22 PAULINA-7 AMB Questionnaire PAULINA-7 Date PAULINA - 7 assessed: 10/12/22 Source: Developed by Drs. Dain Scott, Aruna Mcfarland, Andrea Mir and colleagues, with an educational briana from [employer]. Review of Systems Const Denies chills and Denies fever(s) Eyes Denies blurry vision ENT Denies vertigo, Denies dizziness and Denies sore throat Card Denies chest pain at rest, Denies chest pain with activity, Denies diaphoresis, Denies dyspnea and Denies dyspnea on exertion Resp Denies cough, Denies dyspnea, Denies dyspnea on exertion and Denies wheezing GI Denies abdominal pain, Denies melena, Denies hematochezia, Denies constipation, Denies diarrhea and Denies loose stools Denies hematuria Musc Denies numbness and Denies tingling Skin/Breast Denies lesions Neuro Denies vertigo, Denies dizziness, Denies numbness and Denies tingling Psych Denies anxiety, Denies depression, Denies homicidal ideation, Denies suicidal ideation and Denies other (substance abuse) Aller/Immun Denies wheezing Physical exam (Primary Care) Vital Signs: Last Vital Signs Pulse 77 06/08/23 11:20 BP 108/60 06/08/23 11:20 Pulse Ox 97 06/08/23 11:20 Oxygen Delivery Method Room Air 06/08/23 11:20 BMI result Body Mass Index 36.5 Tobacco/Smoking Status: Tobacco use Status Tobacco use date assessed 06/08/23 06/08/23 11:26 Patient Tobacco Use Status Former Tobacco user 06/08/23 11:26 e-Cigarette/Vaping Use Never Used 06/08/23 11:26 Thrive Assessment: Date of Thrive Assessment Date Thrive assessed 10/12/22 06/08/23 11:26 Const General: cooperative Nutritional Appearance: obese Orientation/consciousness: patient oriented x3 HENMT Head: Yes normal to inspection, Yes normocephalic and Yes atraumatic Ears: TM's normal bilaterally Eyes General: appearance normal, both eyes and all related structures Alignment and Position: alignment normal and position normal Neck Neck: Yes normal visual inspection and Yes no lymphadenopathy Thyroid: Thyroid normal Resp Effort & Inspection: normal respiratory effort Auscultation: clear to auscultation bilaterally Cardio Rate: regular rate Rhythm: regular rhythm Heart sounds: S1 normal heart sound present, S2 normal heart sound present and no murmurs GI Palpation (GI): Soft to palpation and nontender Auscultation: normal bowel sounds Male General Exam: Yes normal external exam Penis: normal penis Back/Spine/Pelvis Other: + spurlings to left, cervical neck pain exacerbated with turning head side to side and chin raises Skin Rashes: no rashes Neuro General: patient oriented x3, moves all extremities, no focal motor deficits and deep tendon reflexes 2+ bilaterally Romberg Test: Negative Extrem Other: +sensation with use of monofilament to feet. onychomycosis noted bilat Psych Appearance: grossly normal Mental Status: mental status grossly normal Speech and movement: Normal speech and movement present Affect: normal affect Attitude: cooperative Thought process: Normal thought process present Thought content: Normal thought content present Insight: Good insight present (Psych) Judgement: Good judgement present (Psych) Assessment and Plan Assessment & Plan (1) Screening PSA (prostate specific antigen): Code(s): Z12.5 - Encounter for screening for malignant neoplasm of prostate (2) Cervical back pain with evidence of disc disease: Code(s): M50.90 - Cervical disc disorder, unspecified, unspecified cervical region (3) Lower back pain: Code(s): M54.50 - Low back pain, unspecified Plan The patient agreed to the use of a medical authorization specialist for this encounter. Scribed for TAMMY Adams-BC by Pratibha Presley medical authorization specialist, on 06/08/2023 at 11:30 EST. Orders: Orders Complete Blood Count Auto Diff Today Z12.5 - Encounter for screening for gregoria gnant neoplasm of prostate Comprehensive [place]. Panel Fast Today Z12.5 - Encounter for screening for malignant neoplasm of prostate TSH reflex Free T4 Today Z12.5 - Encounter for screening for malignant neoplasm of prostate UA CC w/rflx Micro + Cult Today Z12.5 - Encounter for screening for malignant neoplasm of prostate Lipid Panel Today Z12.5 - Encounter for screening for malignant neoplasm of prostate Prostate Specific Antigen Scr Today Z12.5 - Encounter for screening for malignant neoplasm of prostate MR cervical spine wo con Today M50.90 - Cervical disc disorder, unspecified, unspecified cervical region Referrals Chiropractic Referral M54.50 - Low back pain, unspecified Medications: Changed From insulin degludec (Tresiba FlexTouch U-100 insulin) 48 units (0.48 mL) subcut DAILY 45 mL 1RF E11.9 - Type 2 diabetes mellitus without complications To insulin degludec (Tresiba FlexTouch U-100 insulin) 52 units (0.52 mL) subcut DAILY 45 mL 1RF E11.9 - Type 2 diabetes mellitus without complications Coding Level of Care Code Est Pt Prev Care >65y(23136) Diagnoses Screening PSA (prostate specific antigen) Z12.5 Cervical back pain with evidence of disc disease M50.90 Lower back pain M54.50
== END 2023-06-08 11:51 | disposition home or self-care (01) ==
PROVIDERS: Visit Provider Nurse Practitioner Family
DX: Z00.00 Encounter for general adult medical examination without abnormal findings (principal); Z12.5 Encounter for screening for malignant neoplasm of prostate; M50.90 Cervical disc disorder, unspecified, unspecified cervical region; M54.50 Low back pain, unspecified
CPT/HCPCS: 99397

== ENCOUNTER 2023-08-10 12:50 | Outpatient (REF) | payer MEDICARE, SELFPAY ==
--- NOTE | ~2023-08-10 | MR_ITS ---
EXAMINATION: MR CERVICAL SPINE WITHOUT CONTRAST CLINICAL INFORMATION: Left arm and finger tingling COMPARISON: None TECHNIQUE: MRI of the cervical spine was obtained using routine sequences without contrast. FINDINGS: Cervical straightening. No significant spondylolisthesis. No suspicious marrow signal or focal osseous lesion. The vertebral body heights are maintained. Mild multilevel disc height loss and anterior and endplate osteophyte formation. The cervical spinal cord is normal in caliber and signal Limited evaluation of the soft tissues of the neck without demonstrated abnormalities. The flow voids of the major cervical vessels are maintained. Normal appearance of the cervicomedullary junction and visualized posterior fossa SPINAL LEVELS: C2-C3: No significant spinal canal or neuroforaminal narrowing. Mild facet arthropathy C3-C4: Small disc osteophyte complex, mild facet arthropathy and uncovertebral hypertrophy. No significant central spinal canal stenosis. Mild right and moderate left neural foraminal narrowing. C4-C5: Small disc osteophyte complex, mild facet arthropathy and uncovertebral hypertrophy. No significant central spinal canal stenosis. Mild right and moderate to severe left neural foraminal narrowing C5-C6: Left eccentric disc osteophyte complex. Mild facet arthropathy. Uncovertebral hypertrophy. No significant central spinal canal stenosis. Mild to moderate right and severe left neural foraminal narrowing. C6-C7: Mild facet arthropathy and left greater than right uncovertebral hypertrophy. No significant central spinal canal stenosis. Mild to moderate right and moderate to severe left neural foraminal narrowing. C7-T1: No significant spinal canal or neuroforaminal narrowing MR/MR cervical spine wo con IMPRESSION: Multilevel cervical spondylosis as described above without significant central spinal canal narrowing, cord compression, or cord signal abnormality. There is multilevel neural foraminal stenosis, worst and severe on the left at C5-C6 and moderate to severe on the left at C4-C5 and C6-C7.
== END 2023-08-10 12:51 | disposition home or self-care (01) ==
LOC: HO.MRI 12:50
PROVIDERS: PCP Nurse Practitioner Family; Visit Provider Nurse Practitioner Family
DX: M50.90 Cervical disc disorder, unspecified, unspecified cervical region (principal)
CPT/HCPCS: 72141

== ENCOUNTER 2023-09-29 12:58 | Outpatient (REF) | payer OTHER, SELFPAY ==
[2023-09-29 16:10] LABS: MANUAL DIFF FLAG NO
[2023-09-29 16:21] LABS: Appearance Urine Clear; Color Urine Yellow; Glucose Urine UA Negative (Negative); Leukocyte Esterase Urine Negative (Negative); Nitrite Urine Negative (Negative); PH 5.5 (5.0-9.0); Urine Blood Negative (Negative); Urine Ketones Negative (Negative); Urine Protein Negative (Neg-Trace)
[2023-09-29 16:22] LABS: Basophils Absolute Auto 0.1 X10*3/uL (0.0-0.2); Basophils Percent Auto 0.9 % (0-2); Eosinophils Absolute Auto 0.3 X10*3/uL (0.0-0.4); Eosinophils Percent Auto 5.1 % (0-4); Hematocrit 37.3 % (42.0-52.0); Imm Gran Abs Auto 0.01 X10*3/uL (0.00-0.03); Imm Gran Pct Auto 0.2 % (0.0-0.4); Lymphocytes Absolute Auto 1.9 X10*3/uL (1.2-4.9); Lymphocytes Percent Auto 32.7 % (20-40); Mean Corpuscular HGB Conc 32.2 g/dl (31.0-36.0); Mean Corpuscular Volume 90.1 fL (80.0-98.0); Mean Platelet Volume 10.9 fL (9.4-12.4); Monocytes Absolute Auto 0.4 X10*3/uL (0.1-1.2); Monocytes Percent Auto 6.8 % (2-11); Neutrophils Absolute Auto 3.1 x10*3/uL (2.0-8.3); Neutrophils Percent Auto 54.3 % (45-73); Platelet Count 163 X10*3/uL (160-400); Red Blood Count 4.14 X10*6/uL (4.60-5.80); Red Cell Distribution Width 13.1 % (11.0-16.0); White Blood Count 5.7 X10*3/uL (4.8-10.8)
[2023-09-29 17:18] LABS: Alanine Aminotransferase 18 U/L (0-40); Albumin Level 4.2 g/dL (3.5-5.0); Alkaline Phosphatase 85 U/L (39-117); Anion Gap 13 (12-20); Aspartate Amino Transferase 18 U/L (5-37); Bilirubin Total 0.5 mg/dL (0.0-1.0); Blood Urea Nitrogen 10 mg/dL (9-16); Calcium 9.6 mg/dL (8.4-10.2); Carbon Dioxide 30 mmol/L (22-29); Chloride 105 mmol/L (96-108); Cholesterol 128 mg/dL (<200); Estimated Glomerular Filt Rate > 60; Glucose Fasting 126 mg/dL (60-99); HDL Cholesterol 30 mg/dL (>40); LDL Cholesterol Calculated 51 mg/dL (<100); Potassium 4.5 mmol/L (3.3-5.1); Sodium 143 mmol/L (135-145); TSH reflex Free T4 1.53 uIU/mL (0.32-4.0); Total Protein 7.3 g/dL (6.5-8.0); Triglycerides 238 mg/dL (<150)
[2023-09-29 17:20] LABS: Prostate Specific Antigen Scr 1.81 ng/mL (<0.05-4.0)
== END 2023-09-29 12:59 | disposition home or self-care (01) ==
LOC: HO.HMGCLDS 12:58
PROVIDERS: PCP Nurse Practitioner Family; Visit Provider Nurse Practitioner Family
DX: Z12.5 Encounter for screening for malignant neoplasm of prostate (principal); Z20.2 Contact with and (suspected) exposure to infections with a predominantly sexual mode of transmission
CPT/HCPCS: 36415; 80053; 80061; 81003; 84153; 84443; 85025

== ENCOUNTER 2023-10-12 09:56 | Outpatient (AMB) | payer MEDICARE, SELFPAY ==
--- NOTE | 2023-10-12 09:59 | MHC.PC.OV ---
Vital Signs 10/12/23 10:02 Height 6 ft 1 in Weight 276 lb BMI 36.4 BP 106/56 L Blood Pressure Location Rt brachial Position Sitting Pulse 78 Pulse Source Pulse Oximeter Pulse Oximetry (%) 98 Oxygen Delivery Method Room Air Intake Visit Reasons: 4 Month follow up Intake Note: Patient here for diabetes f/u, pt has brought in his readings for the past couple of months. Allergies No Known Allergies [No Known Allergies*] Allergy (Verified 10/12/23 10:04) Medication List - Last Reconciled 10/12/23 by TAMMY Monae- aspirin 81 mg PO DAILY 90 days atorvastatin 80 mg PO DAILY 90 days blood sugar diagnostic ([employer] Verio test strips) 1 strip miscellaneous BID 50 days cholecalciferol (vitamin D3) 25 mcg PO DAILY insulin degludec (Tresiba FlexTouch U-100 insulin) 52 units (0.52 mL) subcut DAILY ketoconazole 2% appl topical DAILY lancets ([employer] Delica Plus Lancet) 30 gauge miscellaneous BID 30 days lisinopril 2.5 mg PO DAILY 90 days metformin 1,000 mg PO BID 90 days multivitamin (Daily Multi-Vitamin tablet) 1 tab PO DAILY pen needle, diabetic (BD Ultra-Fine Mini Pen Needle) 1 ea miscellaneous DAILY 90 days zinc gluconate 30 mg PO DAILY Tobacco use date assessed: 06/08/23 Fall risk assessment: No Falls in past year Last assessed Fall Risk: 10/12/23 Dental Screening Dental Screen Date: 10/12/23 Did you have a dental visit in the last 12 months?: No Did you have a dental problem in the last 6 months where you did not have access to dental care?: No Was dental information given to patient?: Patient has dentist HPI 4 Month follow up HPI Details Pt is a diabetic, on an GIULIANA and a statin. A1C in office today is 8.4. Due for microalbumin. Denies polyuria, polydipsia, and neuropathy. Pt denies any signs and symptoms of hypoglycemia and does know how to correct it. Pt has tried injectables for his diabetes which caused nausea. Will start jardiance 10mg. REFUSES ALL VACCINATIONS. Pt c/o cough. He reports a tickle that causes the cough. Pt is a former smoker, quit 20 years ago. He does have shortness of breath with exertion. Pt had a right lobectomy in 1995. Will order PFT testing and chest XR. Pt c/o mid thoracic back pain. He reports that this radiates transversely. Will order XR. [facility] Medical History (Updated 10/12/23 @ 10:32 by ANDRZEJ Monae) HLD (hyperlipidemia) HTN (hypertension) Anemia Diabetes Surgical History S/P thoracotomy (~1995) History of surgical removal of pilonidal cyst Family History Son Substance use disorder Family/Other Mental health disorder Social History Housing: House Alcohol intake: former Patient Tobacco Use Status: Former Tobacco user e-Cigarette/Vaping Use: Never Used Second Hand Smoke Exposure: No service: No Current occupational status: employed Current occupation: [employer] Current occupational exposures/hazards: Yes Cognitive needs: No Hearing needs: No Vision needs: Yes Questionnaire Thrive Questionnaire Date Thrive assessed: 10/12/22 AUDIT C Alcohol Use Questionnaire (AUDIT-C) 1. How often do you have a drink containing alcohol?: Never 3. How often do you have six or more drinks on one occasion?: Never Total Score: 0 Score Reviewed/Action Taken: No PAULINA-7 AMB Questionnaire PAULINA-7 Date PAULINA - 7 assessed: 10/12/22 Source: Developed by Drs. Dain Scott, Aruna Mcfarland, Andrea Mir and colleagues, with an educational briana from [employer]. Review of Systems Const Reports as per HPI Physical exam (Primary Care) Vital Signs: Last Vital Signs Pulse 78 10/12/23 10:02 BP 106/56 L 10/12/23 10:02 Pulse Ox 98 10/12/23 10:02 Oxygen Delivery Method Room Air 10/12/23 10:02 BMI result Body Mass Index 36.4 Tobacco/Smoking Status: Tobacco use Status Tobacco use date assessed 06/08/23 10/12/23 10:01 Patient Tobacco Use Status Former Tobacco user 10/12/23 10:01 e-Cigarette/Vaping Use Never Used 10/12/23 10:01 Thrive Assessment: Date of Thrive Assessment Date Thrive assessed 10/12/22 10/12/23 10:01 Const General: cooperative Nutritional Appearance: obese Orientation/consciousness: patient oriented x3 Resp Other: lungs slightly diminished though moving air Effort & Inspection: normal respiratory effort Cardio Rate: regular rate Rhythm: regular rhythm Heart sounds: S1 normal heart sound present and S2 normal heart sound present Neuro General: patient oriented x3 Extrem Other: bilat feet: + sensation with use of monofilament, onychomycosis to bilat big toenails Psych Appearance: grossly normal Mental Status: mental status grossly normal Speech and movement: Normal speech and movement present Affect: normal affect Attitude: cooperative Thought process: Normal thought process present Thought content: Normal thought content present Insight: Good insight present (Psych) Judgement: Good judgement present (Psych) Results AMB Hemoglobin A1c AMB Hemoglobin A1c 8.4 % Last Edit by DEMETRIUS Sr on 10/12/23 10:37 Results Reviewed Results Reviewed: Laboratory Last Values Hgb A1c (Clinic) 8.4 % (4.0-6.0) H 10/12/23 10:36 Assessment and Plan Assessment & Plan (1) Uncontrolled diabetes mellitus with hyperglycemia: Code(s): E11.65 - Type 2 diabetes mellitus with hyperglycemia Plan: Labs ordered (2) Cough: Code(s): R05.9 - Cough, unspecified Plan: Chest XR and PFT testing ordered (3) Thoracic back pain: Code(s): M54.6 - Pain in thoracic spine Plan The patient agreed to the use of a certified medical coding specialist for this encounter. Scribed for ANDRZEJ Adams by Pratibha Presley certified medical coding specialist, on 10/12/2023 at 10:20 EST. Orders: Orders XR chest 2V Today R05.9 - Cough, unspecified PFT pulmonary function test Today R05.9 - Cough, unspecified AMB Hemoglobin A1c Today E11.65 - Type 2 diabetes mellitus with hyperglycemia Complete Blood Count Auto Diff Today E11.65 - Type 2 diabetes mellitus with hyperglycemia Comprehensive [place]. Panel Fast Today E11.65 - Type 2 diabetes mellitus with hyperglycemia TSH reflex Free T4 Today E11.65 - Type 2 diabetes mellitus with hyperglycemia UA CC w/rflx Micro + Cult Today E11.65 - Type 2 diabetes mellitus with hyperglycemia Lipid Panel Today E11.65 - Type 2 diabetes mellitus with hyperglycemia XR thoracic spine 2V Today M54.6 - Pain in thoracic spine Medications: New empagliflozin (Jardiance) 10 mg PO DAILY 90 tabs 0RF Changed From insulin degludec (Tresiba FlexTouch U-100 insulin) 52 units (0.52 mL) subcut DAILY 45 mL 1RF E11.9 - Type 2 diabetes mellitus without complications To insulin degludec (Tresiba FlexTouch U-100 insulin) 58 units (0.58 mL) subcut DAILY 45 mL 1RF E11.9 - Type 2 diabetes mellitus without complications Coding Level of Care Code Est Pt Level 3 (95632) Diagnoses Uncontrolled diabetes mellitus with hyperglycemia E11.65 Cough R05.9 Thoracic back pain M54.6
[2023-10-12 10:02] VITALS: BP 106/56; PULSE 78; O2SAT 98; BMI 36.4
== END 2023-10-12 10:51 | disposition home or self-care (01) ==
PROVIDERS: PCP Nurse Practitioner Family; Visit Provider Nurse Practitioner Family
DX: E11.65 Type 2 diabetes mellitus with hyperglycemia (principal); R05.9 Cough, unspecified; M54.6 Pain in thoracic spine
CPT/HCPCS: 83036; 99213

== ENCOUNTER 2023-10-12 10:52 | Outpatient (REF) | payer OTHER, SELFPAY ==
--- NOTE | ~2023-10-12 | XR_ITS ---
Examination: Thoracic spine and chest x-ray. CLINICAL INDICATION: Thoracic spine pain and cough. COMPARISON: Chest 12/08/2022. TECHNIQUE: Thoracic spine 3 views. Chest 2 views. FINDINGS: Thoracic spine: There is maintained thoracic kyphosis. The vertebral heights and alignment is normal. The disc heights are maintained normal. There is mild bridging osteophytes ventral and right lateral lower dorsal spine. The paravertebral soft tissues are normal. Chest x-ray: The lungs are well-expanded and clear acute process. There is mild blunting of right CP angle from pleural effusion or thickening. Heart size and pulmonary vascularity is normal there is moderate spondylosis dorsal spine. XR/XR thoracic spine 2V IMPRESSION: Moderate spondylosis lower anterior and right lateral thoracic spine. No visible acute fracture or dislocation seen. Mild blunting of right CP angle question pleural thickening or effusion. Rest of the lungs are clear.
--- NOTE | ~2023-10-12 | XR_ITS ---
Examination: Thoracic spine and chest x-ray. CLINICAL INDICATION: Thoracic spine pain and cough. COMPARISON: Chest 12/08/2022. TECHNIQUE: Thoracic spine 3 views. Chest 2 views. FINDINGS: Thoracic spine: There is maintained thoracic kyphosis. The vertebral heights and alignment is normal. The disc heights are maintained normal. There is mild bridging osteophytes ventral and right lateral lower dorsal spine. The paravertebral soft tissues are normal. Chest x-ray: The lungs are well-expanded and clear acute process. There is mild blunting of right CP angle from pleural effusion or thickening. Heart size and pulmonary vascularity is normal there is moderate spondylosis dorsal spine. XR/XR chest 2V IMPRESSION: Moderate spondylosis lower anterior and right lateral thoracic spine. No visible acute fracture or dislocation seen. Mild blunting of right CP angle question pleural thickening or effusion. Rest of the lungs are clear.
== END 2023-10-12 10:53 | disposition home or self-care (01) ==
LOC: HO.HMGCX 10:52
PROVIDERS: PCP Nurse Practitioner Family; Visit Provider Nurse Practitioner Family
DX: M54.6 Pain in thoracic spine (principal); R05.9 Cough, unspecified; R93.89 Abnormal findings on diagnostic imaging of other specified body structures; R06.89 Other abnormalities of breathing
CPT/HCPCS: 71046; 72070

== ENCOUNTER 2023-12-03 10:18 | Outpatient (AMB) | payer MEDICARE, SELFPAY ==
[2023-12-03 11:36] VITALS: BP 120/70; PULSE 88; TEMP 36.6; O2SAT 97; BMI 36.4
--- NOTE | 2023-12-03 11:36 | MHC.OFFWIV ---
Intake Vital Signs 12/03/23 11:36 Height 6 ft 1 in Weight 276 lb BMI 36.4 BP 120/70 Blood Pressure Location Lt brachial Position Sitting Pulse 88 Pulse Source Pulse Oximeter Temp 97.8 F Temp Source Temporal Artery Scan Pulse Oximetry (%) 97 Oxygen Delivery Method Room Air Intake Visit Reasons: EST/left eye swelling (lobby) Intake Note: pt is here today for lft eye swelling started 2 days ago Patient Tobacco Use Status: Former Tobacco user Allergies No Known Allergies [No Known Allergies*] Allergy (Verified 12/03/23 11:37) Do you need a note to return to daycare/school/sports/work: No HPI HPI Comments History of Present Illness Details 68 y/o male patient who presents to walk in clinic with c/o Left eye swelling. He noticed the swelling of left upper eyelid yesterday. He denies pain or vision changes. Denies lightsensitivity and headaches. [facility] Medical History (Updated 10/12/23 @ 12:50 by ANDRZEJ Monae) HLD (hyperlipidemia) HTN (hypertension) Anemia Diabetes Surgical History S/P thoracotomy (~1995) History of surgical removal of pilonidal cyst Family History Son Substance use disorder Family/Other Mental health disorder Social History Housing: House Alcohol intake: former Patient Tobacco Use Status: Former Tobacco user e-Cigarette/Vaping Use: Never Used Second Hand Smoke Exposure: No service: No Current occupational status: employed Current occupation: [employer] Current occupational exposures/hazards: Yes Cognitive needs: No Hearing needs: No Vision needs: Yes Review of Systems Const All systems reviewed & are unremarkable except as noted in HPI and below Physical Exam Vital Signs: Last Vital Signs Temp 97.8 F 12/03/23 11:36 Pulse 88 12/03/23 11:36 BP 120/70 12/03/23 11:36 Pulse Ox 97 12/03/23 11:36 Oxygen Delivery Method Room Air 12/03/23 11:36 BMI result Body Mass Index 36.4 Eyes Other: Left eyelid swelling, obscuring vision Eyelids: Yes eyelid abnormality Conjunctivae: conjunctival abnormal left conjunctival injection and diffuse Pupils: Equal, round and reactive pupils present EOM: EOMs intact bilaterally Neuro Cranial nerves: Yes Equal, round and reactive pupils present Psych Speech and movement: Normal speech and movement present Attitude: cooperative Assessment & Plan Assessment & Plan (1) Blepharitis: Code(s): H01.009 - Unspecified blepharitis unspecified eye, unspecified eyelid Qualifiers: Blepharitis type: unspecified type Eyelid: upper Laterality: left Qualified Code(s): H01.004 - Unspecified blepharitis left upper eyelid Plan: - Keep eyes clean and dry - Use the medicine as directed Plan - Advised to f/u with his eye doctor Medications: New erythromycin 1 appl ophthalmic (eye) BEDTIME 3.5 grams 0RF H01.004 - Unspecified blepharitis left upper eyelid Coding Level of Care Code Est Pt Level 3 (19698) Diagnoses Blepharitis of left upper eyelid, unspecified type H01.004 Blepharitis type: unspecified type Eyelid: upper Laterality: left Time Spent (min) 15
== END 2023-12-03 16:19 | disposition home or self-care (01) ==
PROVIDERS: PCP Nurse Practitioner Family; Visit Provider Nurse Practitioner Family
DX: H01.004 Unspecified blepharitis left upper eyelid (principal)
CPT/HCPCS: 99213

== ENCOUNTER 2023-12-09 07:26 | Outpatient (REF) | payer MEDICARE, SELFPAY ==
--- NOTE | ~2023-12-09 | CT_ITS ---
EXAMINATION: CT CHEST WITHOUT CONTRAST CLINICAL INFORMATION: Abnormal findings status post lobectomy. COMPARISON: Chest radiograph 10/12/2023. TECHNIQUE: Multidetector volumetric CT imaging of the chest was done. Axial MIP volume rendering provided. Sagittal and coronal reformatted images were obtained. This CT examination was performed using dose optimization techniques as appropriate, variously including the following: *Automated exposure control *Adjustment of mA and/or kV according to patient size (this includes techniques or standardized protocols for targeted exams where dose is matched to indication/reason for exam; i.e. extremities or head) *Use of iterative reconstruction technique DLP: 243 mGy-cm FINDINGS: LUNGS: Some scarring is present in the right middle lobe and in the right lower lobe as well as the lingula. No suture lines are seen in the lung. There is a 3 mm perifissural lymph node present in the left lower lobe along the major fissure (5:247). No other lung masses are seen. Regarding the lateral blunting of the right costophrenic angle seen on the recent chest radiograph, there may be some minimal pleural thickening corresponding to this. No pleural effusion to account for the finding (3:38). MEDIASTINUM: The mediastinum is normal. CORONARY ARTERY CALCIFICATION: Mild. PLEURA: There is no pleural effusion. No pleural mass or thickening. AXILLA: No lymphadenopathy. UPPER ABDOMEN: Unremarkable. OSSEOUS STRUCTURES: Degenerative changes are present in the spine. CT/CT chest wo IV con IMPRESSION: 1. No evidence of a pulmonary mass. 2. Scarring in the right middle lobe, right lower lobe and lingula. 3. A 3 mm perifissural lymph node left lower lobe. 4. Regarding the lateral blunting of the right costophrenic angle seen on the recent chest radiograph, there may be some minimal pleural thickening corresponding to this pleural effusion to account for the finding. Fleischner guidelines were followed.
== END 2023-12-09 07:27 | disposition home or self-care (01) ==
LOC: HO.CT 07:26
PROVIDERS: PCP Nurse Practitioner Family; Visit Provider Nurse Practitioner Family
DX: R93.89 Abnormal findings on diagnostic imaging of other specified body structures (principal); R06.89 Other abnormalities of breathing
CPT/HCPCS: 71250

== ENCOUNTER 2024-02-14 10:05 | Outpatient (AMB) | payer OTHER, SELFPAY ==
--- NOTE | 2024-02-14 10:10 | A.OFFPC_ITS ---
Vital Signs 02/14/24 10:12 Height 6 ft 1 in Weight 279 lb BMI 36.8 BP 130/76 Blood Pressure Location Rt brachial Position Sitting Pulse 86 Pulse Source Pulse Oximeter Pulse Oximetry (%) 98 Oxygen Delivery Method Room Air Intake Visit Reasons: 4 month fu Intake Note: Patient here for diabetes follow up. Allergies No Known Allergies [No Known Allergies*] Allergy (Verified 02/14/24 10:23) Medication List - Last Reconciled 02/14/24 by ANDRZEJ Monae aspirin 81 mg PO DAILY 90 days atorvastatin 80 mg PO DAILY 90 days blood sugar diagnostic ([employer] Verio test strips) 1 strip miscellaneous TID cholecalciferol (vitamin D3) 25 mcg PO DAILY empagliflozin (Jardiance) 10 mg PO DAILY erythromycin 1 appl ophthalmic (eye) BEDTIME insulin degludec (Tresiba FlexTouch U-100 insulin) 58 units (0.58 mL) subcut DAILY ketoconazole 2% appl topical DAILY lancets ([employer] Delica Plus Lancet) 30 gauge miscellaneous BID 30 days lisinopril 2.5 mg PO DAILY 90 days metformin 1,000 mg PO BID 90 days multivitamin (Daily Multi-Vitamin tablet) 1 tab PO DAILY pen needle, diabetic (BD Ultra-Fine Mini Pen Needle) 1 ea miscellaneous DAILY 90 days zinc gluconate 30 mg PO DAILY Tobacco use date assessed: 02/14/24 Fall risk assessment: No Falls in past year Last assessed Fall Risk: 02/14/24 Dental Screening Dental Screen Date: 10/12/23 HPI 4 month fu HPI Details Pt is a diabetic, on an GIULIANA and a statin. A1C in office today is 7.3. Due for microalbumin, will order. Denies polyuria, polydipsia, and neuropathy. Pt denies any signs and symptoms of hypoglycemia and does know how to correct it. Will increase jardiance from 10mg to 25mg. Pt's feet are dry, recommended diabetic foot cream. Pt reports skin lesions to his right mu-ism and left nare. Will refer to derm. Pt c/o lower back pain. He denies any radicular symptoms. Will order XR. Denies any signs of cauda equina. [facility] Medical History (Updated 02/14/24 @ 10:27 by ANDRZEJ Monae) HLD (hyperlipidemia) HTN (hypertension) Anemia Diabetes Surgical History S/P thoracotomy (~1995) History of surgical removal of pilonidal cyst Family History Son Substance use disorder Family/Other Mental health disorder Social History Housing: House Alcohol intake: former Patient Tobacco Use Status: Former Tobacco user e-Cigarette/Vaping Use: Never Used Second Hand Smoke Exposure: No service: No Current occupational status: employed Current occupation: [employer] Current occupational exposures/hazards: Yes Cognitive needs: No Hearing needs: No Vision needs: Yes Questionnaire Thrive Questionnaire Date Thrive assessed: 10/12/22 PAULINA-7 AMB Questionnaire PAULINA-7 Date PAULINA - 7 assessed: 10/12/22 Source: Developed by Drs. Dain Scott, Aruna Mcfarland, Andrea Mir and colleagues, with an educational briana from [employer]. Review of Systems Const Reports as per HPI Physical exam (Primary Care) Vital Signs: Last Vital Signs Pulse 86 02/14/24 10:12 BP 130/76 02/14/24 10:12 Pulse Ox 98 02/14/24 10:12 Oxygen Delivery Method Room Air 02/14/24 10:12 BMI result Body Mass Index 36.8 Tobacco/Smoking Status: Tobacco use Status Tobacco use date assessed 02/14/24 02/14/24 10:16 Patient Tobacco Use Status Former Tobacco user 02/14/24 10:12 e-Cigarette/Vaping Use Never Used 02/14/24 10:12 Thrive Assessment: Date of Thrive Assessment Date Thrive assessed 10/12/22 02/14/24 10:12 Const General: cooperative Nutritional Appearance: obese Orientation/consciousness: patient oriented x3 Resp Effort & Inspection: normal respiratory effort Auscultation: clear to auscultation bilaterally Cardio Rate: regular rate Rhythm: regular rhythm Heart sounds: S1 normal heart sound present and S2 normal heart sound present Back/Spine/Pelvis Other: tenderness with palpation of right lower paraspinus region, able to heel and toe walk with discomfort to lower transverse back Skin Other: right mu-ism and left nare with small dry slightly raised papular lesion Neuro General: patient oriented x3 Extrem Other: bilat feet: + sensation with use of monofilament, severe onychomcosis noted, feet are dry Psych Appearance: grossly normal Mental Status: mental status grossly normal Speech and movement: Normal speech and movement present Affect: normal affect Attitude: cooperative Thought process: Normal thought process present Thought content: Normal thought content present Insight: Good insight present (Psych) Judgement: Good judgement present (Psych) Assessment and Plan Assessment & Plan (1) Skin lesion: Code(s): L98.9 - Disorder of the skin and subcutaneous tissue, unspecified Plan: Referred to derm (2) Uncontrolled diabetes mellitus with hyperglycemia: Code(s): E11.65 - Type 2 diabetes mellitus with hyperglycemia Plan: Microalbumin ordered, jardiance increased (3) Lower back pain: Code(s): M54.50 - Low back pain, unspecified Plan: XR ordered Plan The patient agreed to the use of a behavioral medical director for this encounter. Scribed for ANDRZEJ Adams by Pratibha Presley behavioral medical director, on 02/14/2024 at 10:25 EST. Orders: Orders XR lumbar spine 2-3V Today M54.50 - Low back pain, unspecified Microalbumin, Random (w Creat) Today E11.65 - Type 2 diabetes mellitus with hyperglycemia Referrals Dermatology Referral L98.9 - Disorder of the skin and subcutaneous tissue, unspecified Medications: Changed 2 From empagliflozin (Jardiance) 10 mg PO DAILY 90 tabs 1RF To empagliflozin 25 mg PO DAILY 90 tabs 1RF Coding Level of Care Code Est Pt Level 3 (17766) Diagnoses Skin lesion L98.9 Uncontrolled diabetes mellitus with hyperglycemia E11.65 Lower back pain M54.50
[2024-02-14 10:12] VITALS: BP 130/76; PULSE 86; O2SAT 98; BMI 36.8
== END 2024-02-14 10:41 | disposition home or self-care (01) ==
PROVIDERS: PCP Nurse Practitioner Family; Visit Provider Nurse Practitioner Family
DX: L98.9 Disorder of the skin and subcutaneous tissue, unspecified (principal); E11.65 Type 2 diabetes mellitus with hyperglycemia; M54.50 Low back pain, unspecified
CPT/HCPCS: 83036; 99213

== ENCOUNTER 2024-02-24 13:10 | Outpatient (REF) | payer MEDICARE, SELFPAY ==
--- NOTE | ~2024-02-24 | XR_ITS ---
EXAMINATION: XR LUMBOSACRAL SPINE CLINICAL INFORMATION: Low back pain COMPARISON: None available. TECHNIQUE: Three views of the lumbosacral spine. FINDINGS: There is advanced degenerative change seen at L3-S1 particularly at the L4-L5 level. Disc space narrowing and marginal spurring noted. There is facet degenerative change L5-S1.. The SI joints are symmetric. No evidence for acute fracture or destructive process. XR/XR lumbar spine 2-3V IMPRESSION: Multilevel degenerative change.
== END 2024-02-24 13:11 | disposition home or self-care (01) ==
LOC: HO.HMGCX 13:10
PROVIDERS: PCP Nurse Practitioner Family; Visit Provider Nurse Practitioner Family
DX: M54.50 Low back pain, unspecified (principal)
CPT/HCPCS: 72100

== ENCOUNTER 2024-06-19 10:30 | Outpatient (AMB) | payer MEDICARE, SELFPAY ==
[2024-06-19 10:32] VITALS: BP 120/78; PULSE 79; O2SAT 98; BMI 35.8
--- NOTE | 2024-06-19 10:32 | MHC.PC.OV ---
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 Allergies No Known Allergies [No Known Allergies*] Allergy (Verified 06/19/24 10:46) Medication List - Last Reconciled 06/19/24 by ANDRZEJ Monae aspirin 81 mg PO DAILY 90 days atorvastatin 80 mg PO DAILY 90 days blood sugar diagnostic ([employer] Verio test strips) 1 strip miscellaneous TID blood-glucose meter ([employer] Verio Reflect Meter) As directed cholecalciferol (vitamin D3) 25 mcg PO DAILY empagliflozin 25 mg PO DAILY insulin degludec (Tresiba FlexTouch U-100 insulin) 58 units (0.58 mL) subcut DAILY ketoconazole 2% appl topical DAILY lancets ([employer] Delica Plus Lancet) 30 gauge miscellaneous BID lisinopril 2.5 mg PO DAILY 90 days metformin 1,000 mg PO BID 90 days multivitamin (Daily Multi-Vitamin tablet) 1 tab PO DAILY pen needle, diabetic (BD Ultra-Fine Mini Pen Needle) 1 ea miscellaneous DAILY 90 days zinc gluconate 30 mg PO DAILY Tobacco use date assessed: 02/14/24 Fall risk assessment: No Falls in past year Last assessed Fall Risk: 06/19/24 Dental Screening Dental Screen Date: 10/12/23 HPI PE HPI Details Pt is here for a PE. Will order labs. Colon screen is up to date. PSA is up to date. Denies dribbling with urination, weak stream, and frequent nocturia. Pt is a diabetic, on an GIULIANA and a statin. A1C in office today is 6.8. Due for microalbumin. Denies polyuria, polydipsia, and neuropathy. Pt denies any signs and symptoms of hypoglycemia and does know how to correct it. He has an eye doctor. Pt follows up with derm. Refuses all vaccines. [facility] Medical History HLD (hyperlipidemia) HTN (hypertension) Anemia Diabetes Surgical History S/P thoracotomy (~1995) History of surgical removal of pilonidal cyst Family History Son Substance use disorder Family/Other Mental health disorder Social History Housing: House Alcohol intake: former Patient Tobacco Use Status: Former Tobacco user e-Cigarette/Vaping Use: Never Used Second Hand Smoke Exposure: No service: No Current occupational status: employed Current occupation: [employer] Current occupational exposures/hazards: Yes Cognitive needs: No Hearing needs: No Vision needs: Yes Questionnaire PHQ-9 Over the last 2 weeks, how often have you been bothered by any of the following problems? 1. Little interest or pleasure in doing things: more than half the days 2. Feeling down, depressed, or hopeless: not at all 3. Trouble falling or staying asleep, or sleeping too much: not at all 4. Feeling tired or having little energy: not at all 5. Poor appetite or overeating: not at all 6. Feeling bad about yourself - or that you are a failure or have let yourself or your family down: not at all 7. Trouble concentrating on things, such as reading the newspaper or watching television: not at all 8. Moving or speaking so slowly that other people could have noticed. Or the opposite - being so fidgety or restless that you have been moving around a lot more than usual: not at all 9. Thoughts that you would be better off or of hurting yourself in some way: not at all Total score: 2 Depression Screening Interpretation: Negative Depression Screening Done: Yes 78077 - PHQ-9 Billing: Yes Source: Developed by Drs. Dain Scott, Aruna Mcfarland, Andrea Mir and colleagues, with an educational briana from [employer]. Thrive Questionnaire Date Thrive assessed: 06/19/24 I am a: Patient What is your living situation today?: I have a steady place to live Within the past 12 months, did the food you bought not last and you didn't have the money to get more?: Never true Within the past 12 months, did you worry whether your food would run out before you got money to buy more?: Never true Do you have trouble paying for medicines?: No Do you have trouble getting transportation to medical appointments?: No Do you have trouble paying your heating and electricity bill?: No Do you have trouble taking care of your child, family member or friend?: No Do you have trouble with day-to-day activities such as bathing, preparing meals, shopping, managing finances, etc.?: No Are you currently unemployed and looking for a job?: No Are you interested in more education?: No Please select the resources that you would like help with: None Currently or been in a relationship where the following occur: No concerns reported THRIVE Score: 0 AUDIT C Alcohol Use Questionnaire (AUDIT-C) 1. How often do you have a drink containing alcohol?: Never 3. How often do you have six or more drinks on one occasion?: Never Total Score: 0 Score Reviewed/Action Taken: Yes PAULINA-7 AMB Questionnaire PAULINA-7 Date PAULINA - 7 assessed: 06/19/24 Feeling nervous, anxious, or on edge: 0 = Not at all Not being able to stop or control worryin = Not at all Worrying too much about different things: 0 = Not at all Trouble relaxin = Not at all Being so restless that it is hard to sit still: 0 = Not at all Becoming easily annoyed or irritable: 0 = Not at all Feeling afraid as if something awful might happen: 0 = Not at all Total PAULINA-7 score (0-4 normal; 5-9 mild; 10-14 moderate; 15-21 severe): 0 Source: Developed by Drs. Dain Scott, Aruna Mcfarland, Andrea Mir and colleagues, with an educational briana from [employer]. PAULINA-7 Assessment Billing PAULINA-7 Assessment Tool: PAULINA-7 Assessment 64998 Review of Systems Const Denies chills and Denies fever(s) Eyes Denies blurry vision ENT Denies vertigo, Denies dizziness and Denies sore throat Card Denies chest pain at rest, Denies chest pain with activity, Denies diaphoresis, Denies dyspnea and Denies dyspnea on exertion Resp Denies cough, Denies dyspnea, Denies dyspnea on exertion and Denies wheezing GI Denies abdominal pain, Denies melena, Denies hematochezia, Denies constipation, Denies diarrhea and Denies loose stools Denies hematuria Musc Denies numbness and Denies tingling Skin/Breast Denies lesions Neuro Denies vertigo, Denies dizziness, Denies numbness and Denies tingling Psych Denies anxiety, Denies depression, Denies homicidal ideation, Denies suicidal ideation and Denies other (substance abuse) Aller/Immun Denies wheezing Physical exam (Primary Care) Vital Signs: Last Vital Signs Pulse 79 06/19/24 10:32 BP 120/78 06/19/24 10:32 Pulse Ox 98 06/19/24 10:32 Oxygen Delivery Method Room Air 06/19/24 10:32 BMI result Body Mass Index 35.8 Tobacco/Smoking Status: Tobacco use Status Tobacco use date assessed 02/14/24 06/19/24 10:33 Patient Tobacco Use Status Former Tobacco user 06/19/24 10:33 e-Cigarette/Vaping Use Never Used 06/19/24 10:33 PHQ-9: PHQ-9 Score PHQ-9: Total score 2 06/19/24 10:47 Depression Screening Interpretation: Negative Thrive Assessment: Date of Thrive Assessment Date Thrive assessed 06/19/24 06/19/24 10:41 Currently or been in a relationship where the following occur: No concerns reported Const General: cooperative Nutritional Appearance: obese Orientation/consciousness: patient oriented x3 HENMT Head: Yes normal to inspection, Yes normocephalic and Yes atraumatic Ears: TM's normal bilaterally Eyes General: appearance normal, both eyes and all related structures Alignment and Position: alignment normal and position normal Neck Neck: Yes normal visual inspection, Yes no lymphadenopathy and Yes supple Resp Effort & Inspection: normal respiratory effort Auscultation: clear to auscultation bilaterally Cardio Rate: regular rate Rhythm: regular rhythm Heart sounds: S1 normal heart sound present, S2 normal heart sound present and no murmurs GI Palpation (GI): Soft to palpation and nontender Auscultation: normal bowel sounds Male General Exam: Yes normal external exam Penis: normal penis Scrotum: scrotum normal, testes descended bilaterally and no inguinal hernias Testes: no testicular mass Skin Other: papular lesions to tip of nose Rashes: no rashes Neuro General: patient oriented x3, moves all extremities, no focal motor deficits and deep tendon reflexes 2+ bilaterally Romberg Test: Negative Extrem Other: bilat feet: + sensation with use of monofilament, feet intact, onychomycosis noted bilat Psych Appearance: grossly normal Mental Status: mental status grossly normal Speech and movement: Normal speech and movement present Affect: normal affect Attitude: cooperative Thought process: Normal thought process present Thought content: Normal thought content present Insight: Good insight present (Psych) Judgement: Good judgement present (Psych) Results AMB Hemoglobin A1c AMB Hemoglobin A1c 6.8 % Last Edit by Balbir Echeverria CMA on 06/19/24 11:18 Assessment and Plan Assessment & Plan (1) Screening PSA (prostate specific antigen): Code(s): Z12.5 - Encounter for screening for malignant neoplasm of prostate Plan: PSA ordered (2) Physical exam: Code(s): Z00.00 - Encounter for general adult medical examination without abnormal findings Plan: Labs ordered (3) Uncontrolled diabetes mellitus with hyperglycemia: Code(s): E11.65 - Type 2 diabetes mellitus with hyperglycemia Plan: Labs ordered (4) Diabetes: Code(s): E11.9 - Type 2 diabetes mellitus without complications Plan: controlled currently. Doing better with diet and jardiance Plan The patient agreed to the use of a territory sales manager medical for this encounter. Scribed for ANDRZEJ Adams by Pratibha Presley territory sales manager medical, on 06/19/2024 at 10:50 EST. Orders: Orders Complete Blood Count Auto Diff Today E11.65 - Type 2 diabetes mellitus with hyperglycemia TSH reflex Free T4 Today E11.65 - Type 2 diabetes mellitus with hyperglycemia UA CC w/rflx Micro + Cult Today E11.65 - Type 2 diabetes mellitus with hyperglycemia Lipid Panel Today E11.65 - Type 2 diabetes mellitus with hyperglycemia Prostate Specific Antigen Scr Today Z12.5 - Encounter for screening for malignant neoplasm of prostate Microalbumin, Random (w Creat) Today E11.9 - Type 2 diabetes mellitus without complications Comprehensive [place]. Panel Fast Today E11.65 - Type 2 diabetes mellitus with hyperglycemia AMB Hemoglobin A1c Today Z13.9 - Encounter for screening, unspecified Coding Level of Care Code Est Pt Prev Care >65y(54364) Diagnoses Screening PSA (prostate specific antigen) Z12.5 Physical exam Z00.00 Uncontrolled diabetes mellitus with hyperglycemia E11.65 Diabetes E11.9 Additional Codes PAULINA-7 Assessment Billing - PAULINA-7 Assessment Tool: PAULINA-7 Assessment [id number] ([id number])
== END 2024-06-19 11:20 | disposition home or self-care (01) ==
PROVIDERS: PCP Nurse Practitioner Family; Visit Provider Nurse Practitioner Family
DX: Z00.00 Encounter for general adult medical examination without abnormal findings (principal); Z12.5 Encounter for screening for malignant neoplasm of prostate; E11.65 Type 2 diabetes mellitus with hyperglycemia; E11.9 Type 2 diabetes mellitus without complications; Z13.9 Encounter for screening, unspecified

== ENCOUNTER → 2024-06-19 10:30 | Outpatient (BNVA) | payer MEDICARE, SELFPAY | PROVIDERS: PCP Nurse Practitioner Family; Visit Provider Nurse Practitioner Family | DX: Z00.00 Encounter for general adult medical examination without abnormal findings (principal); E11.65 Type 2 diabetes mellitus with hyperglycemia | CPT/HCPCS: 83036; 96127 ==

== ENCOUNTER 2024-09-05 07:56 | Outpatient (REF) | payer MEDICARE, SELFPAY ==
--- NOTE | 2024-09-05 07:58 | PFT_ITS ---
Flows: FEV1: 68 % of predicted at 2.49 L FVC: 72 % of predicted at 3.50 L FEV1/FVC: 71 % Bronchodilator response: Present Volumes: Total lung capacity: 65 % of predicted at 5.16 L Residual volume: 68 % of predicted at 1.82 L Slow vital capacity: 64 % of predicted at 3.34 L Expiratory reserve volume: 30 % of predicted at 0.45 L Diffusion capacity: Mildly decreased, corrects to normal after adjustment for alveolar ventilation. Impression: Moderate restrictive ventilatory defect with positive bronchodilator response. Decreased expiratory reserve volume suggests extrathoracic restriction likely secondary to abdominal obesity. Combination of restrictive ventilatory defect in decreased diffusion capacity suggests underlying pulmonary parenchymal disease. Clinical correlation is advised. MTDD
[2024-09-05 09:57] VITALS: PULSE 81; O2SAT 98
== END 2024-09-05 07:57 | disposition home or self-care (01) ==
LOC: HO.RESP 07:56
PROVIDERS: PCP Nurse Practitioner Family; Visit Provider Nurse Practitioner Family
DX: R05.9 Cough, unspecified (principal)
CPT/HCPCS: 94010; 94640; 94727; 94729

== ENCOUNTER → 2024-09-05 07:58 | Outpatient (BNV) | payer MEDICARE, SELFPAY | PROVIDERS: PCP Nurse Practitioner Family; Visit Provider Internal Medicine Pulmonary Disease | DX: R05.9 Cough, unspecified (principal) | CPT/HCPCS: 94060; 94727; 94729 ==

== ENCOUNTER 2024-10-23 09:21 | Outpatient (AMB) | payer MEDICARE, SELFPAY ==
[2024-10-23 09:26] VITALS: BP 122/72; PULSE 77; O2SAT 97; BMI 35.9
--- NOTE | 2024-10-23 09:26 | A.OFFPC_ITS ---
Vital Signs 10/23/24 09:26 Height 6 ft 1 in Weight 272 lb BMI 35.9 BP 122/72 Blood Pressure Location Lt brachial Position Sitting Pulse 77 Pulse Source Pulse Oximeter Pulse Oximetry (%) 97 Intake Visit Reasons: 4 month follow up Intake Note: pt is here for 4 mon f/up Outsole Caser Required: No Accompanied by: Self / Same As Patient Allergies No Known Allergies [No Known Allergies*] Allergy (Verified 10/23/24 09:26) Tobacco use date assessed: 10/23/24 Fall risk assessment: No Falls in past year Last assessed Fall Risk: 10/23/24 Dental Screening Dental Screen Date: 10/23/24 Did you have a dental visit in the last 12 months?: Yes Did you have a dental problem in the last 6 months where you did not have access to dental care?: No Was dental information given to patient?: Patient has dentist HPI 4 month follow up HPI Details Chief Complaint Follow-up for diabetes; increase in A1c levels noted. History of Present Illness The patient is a 69-year-old male presenting with a follow-up for diabetes management. The patient reports an increase in hemoglobin A1c to 7.3% from a previous level of 6.8%. The patient attributes this rise to dietary indiscretion. He has a past intolerance to GLP-1 agonists, which caused sickness. Currently, he is on an SGLT-2 inhibitor for diabetes management. He denies any symptoms of neuropathy, polyuria, or polydipsia. Additionally, there have been no recent complications, and his current treatment strategy seems to maintain other symptoms well controlled. His physical activity levels and compliance with dietary advice were discussed. Pt has been losing weight, going to the gym. #2 right knee pain, most likely related to arthritis, worsening pain with cold weather. Will get an xr. refused all vaccinations Social History - Current nutrition intake has been inco nsistent, potentially influencing diabetes management. Health Maintenance eye exam is up to date Review of Systems - Cardiovascular: Denies chest pain. - Respiratory: Denies shortness of breat h, no fevers, no chills. - Dermatological: Denies neuropathy. - Genitourinary: Denies polyuria, polydi psia. Physical Exam General: Cooperative, healthy appearing, comfortable, no acute distress and well developed Orientation: Patient oriented x3 Limitations: No limitations Head: Normal to inspection Ears: Hearing grossly normal bilaterally Nose: Normal external nose present Face and sinus: Normal facial exam Eyes: Appearance normal, both eyes and all related structures Neck: Normal visual inspection and Yes full ROM Respiratory: Slightly diminished especially in the right, but no shortness of breath or increased shortness of breath. Clear to auscultation bilaterally Cardiovascular: Regular rate and rhythm. Normal S1 and S2 GI: Normal to inspection. Soft to palpation and nontender Skin: No rashes or lesions noted Neuro: Patient oriented x3 Extremities: Feet were intact with a slight dusky hue bilaterally. Weak Ped pulse noted to the left, though good. right knee with faint swelling, no erythema, neg mccmurrays and neg lachmans. CMs bilaterally. Normal to inspection, onychomycosis noted bilat. + sensation with use of monofilament Results - Labs: Hemoglobin A1c 7.3% Plan - Continue current regimen with SGLT-2 i nhibitor. - Monitor diet closely to help manage bl ood glucose levels. - No GLP-1 agonists due to past adverse reaction. - Continue monitoring hemoglobin A1c lev els for any further changes. - Schedule regular follow-ups to assess diabetes management and adjust treatment as needed. Discussion Notes During our discussion, I elaborated on the importance of maintaining a consistent diet to aid in blood sugar management. The patient was advised to avoid GLP-1 agonists due to previous adverse reactions. We reiterated the impor tance of monitoring his hemoglobin A1c levels to guide ongoing treatment plans. I encouraged him to report any new symptoms such as increased urination or numbness to promptly address potential complications. The patient was advised on the current approach and the necessity of regular follow-ups to maintain optimal management of his diabetes. Patient Instructions - Maintain a balanced and consistent t to help manage blood sugar levels. - Continue with your current diabetes me dication as prescribed. - Monitor blood glucose levels regularly and note any significant changes. - Report any new symptoms such as increa sed urination or numbness immediately. - Schedule your next follow-up appointme nt as planned. [facility] Medical History Diabetes HLD (hyperlipidemia) HTN (hypertension) Anemia Surgical History S/P thoracotomy (~1995) History of surgical removal of pilonidal cyst Family History Son Substance use disorder Family/Other Mental health disorder Social History Housing: House Alcohol intake: former Patient Tobacco Use Status: Former Tobacco user e-Cigarette/Vaping Use: Never Used Second Hand Smoke Exposure: No service: No Current occupational status: employed Current occupation: [employer] Current occupational exposures/hazards: Yes Cognitive needs: No Hearing needs: No Vision needs: Yes Questionnaire PHQ-9 Over the last 2 weeks, how often have you been bothered by any of the following problems? 1. Little interest or pleasure in doing things: more than half the days 2. Feeling down, depressed, or hopeless: not at all 3. Trouble falling or staying asleep, or sleeping too much: not at all 4. Feeling tired or having little energy: not at all 5. Poor appetite or overeating: not at all 6. Feeling bad about yourself - or that you are a failure or have let yourself or your family down: not at all 7. Trouble concentrating on things, such as reading the newspaper or watching television: not at all 8. Moving or speaking so slowly that other people could have noticed. Or the opposite - being so fidgety or restless that you have been moving around a lot more than usual: not at all 9. Thoughts that you would be better off or of hurting yourself in some way: not at all Total score: 2 Depression Screening Interpretation: Negative Depression Screening Done: Yes 85322 - PHQ-9 Billing: Yes Source: Developed by Drs. Dain Scott, Aruna Mcfarland, Andrea Mir and colleagues, with an educational briana from [employer]. Thrive Questionnaire Date Thrive assessed: 10/23/24 I am a: Patient What is your living situation today?: I have a steady place to live Within the past 12 months, did the food you bought not last and you didn't have the money to get more?: Never true Within the past 12 months, did you worry whether your food would run out before you got money to buy more?: Never true Do you have trouble paying for medicines?: No Do you have trouble getting transportation to medical appointments?: No Do you have trouble paying your heating and electricity bill?: No Do you have trouble taking care of your child, family member or friend?: No Do you have trouble with day-to-day activities such as bathing, preparing meals, shopping, managing finances, etc.?: No Are you currently unemployed and looking for a job?: No Are you interested in more education?: No Please select the resources that you would like help with: None Currently or been in a relationship where the following occur: No concerns reported THRIVE Score: 0 AUDIT C Alcohol Use Questionnaire (AUDIT-C) 1. How often do you have a drink containing alcohol?: Never 3. How often do you have six or more drinks on one occasion?: Never Total Score: 0 Score Reviewed/Action Taken: Yes PAULINA-7 AMB Questionnaire PAULINA-7 Date PAULINA - 7 assessed: 10/23/24 Feeling nervous, anxious, or on edge: 0 = Not at all Not being able to stop or control worryin = Not at all Worrying too much about different things: 0 = Not at all Trouble relaxin = Not at all Being so restless that it is hard to sit still: 0 = Not at all Becoming easily annoyed or irritable: 0 = Not at all Feeling afraid as if something awful might happen: 0 = Not at all Total PAULINA-7 score (0-4 normal; 5-9 mild; 10-14 moderate; 15-21 severe): 0 Source: Developed by Drs. Dain Scott, Aruna Mcfarland, Andrea Mir and colleagues, with an educational briana from [employer]. PAULINA-7 Assessment Billing PAULINA-7 Assessment Tool: PAULINA-7 Assessment 57436 Physical exam (Primary Care) Vital Signs: Last Vital Signs Pulse 77 10/23/24 09:26 BP 122/72 10/23/24 09:26 Pulse Ox 97 10/23/24 09:26 BMI result Body Mass Index 35.9 Tobacco/Smoking Status: Tobacco use Status Tobacco use date assessed 10/23/24 10/23/24 09:27 Patient Tobacco Use Status Former Tobacco user 10/23/24 09:27 e-Cigarette/Vaping Use Never Used 10/23/24 09:27 PHQ-9: PHQ-9 Score PHQ-9: Total score 2 10/23/24 09:27 Depression Screening Interpretation: Negative Thrive Assessment: Date of Thrive Assessment Date Thrive assessed 10/23/24 10/23/24 09:27 Currently or been in a relationship where the following occur: No concerns reported Results AMB Hemoglobin A1c AMB Hemoglobin A1c 7.3 % Last Edit by Balbir Echeverria CMA on 10/23/24 09: 50 Results Reviewed Results Reviewed: Laboratory Last Values Hgb A1c (Clinic) 7.3 % (4.0-6.0) H 10/23/24 09:25 Coding Level of Care Code Est Pt Level 3 (35955) Diagnoses Right knee pain M25.561 Diabetes E11.9 Additional Codes PAULINA-7 Assessment Billing - PAULINA-7 Assessment Tool: PAULINA-7 Assessment 85736 ([id number]) PHQ-9 - 54765 - PHQ-9 Billing: Yes ([id number]) Assessment & Plan Assessment & Plan (1) Right knee pain: Code(s): M25.561 - Pain in right knee Category: Medical (2) Diabetes: Code(s): E11.9 - Type 2 diabetes mellitus without complications Category: Medical Plan . Orders: Orders XR knee RT 2V Today M25.561 - Pain in right knee AMB Hemoglobin A1c Today Z13.9 - Encounter for screening, unspecified
== END 2024-10-23 10:09 | disposition home or self-care (01) ==
PROVIDERS: PCP Nurse Practitioner Family; Visit Provider Nurse Practitioner Family
DX: M25.561 Pain in right knee (principal); E11.9 Type 2 diabetes mellitus without complications; Z13.9 Encounter for screening, unspecified

== ENCOUNTER → 2024-10-23 09:21 | Outpatient (BNVA) | payer MEDICARE, SELFPAY | PROVIDERS: PCP Nurse Practitioner Family; Visit Provider Nurse Practitioner Family | DX: M25.561 Pain in right knee (principal); E11.9 Type 2 diabetes mellitus without complications | CPT/HCPCS: 83036; 96127; 99212 ==

== ENCOUNTER 2024-10-31 10:37 | Outpatient (AMB) | payer MEDICARE, SELFPAY ==
[2024-10-31 10:38] VITALS: BP 122/67; PULSE 88; O2SAT 98; BMI 77.9
--- NOTE | 2024-10-31 10:38 | MHC.OFFVIS ---
Vital Signs 10/31/24 10:38 Height 6 ft 1 in Weight 590 lb 13.421 oz BMI 77.9 BP 122/67 Blood Pressure Location Lt brachial Position Sitting Pulse 88 Pulse Source Doppler Pulse Oximetry (%) 98 Oxygen Delivery Method Room Air Intake Visit Reasons: Abnormal PFT Allergies No Known Allergies [No Known Allergies*] Allergy (Verified 10/31/24 10:44) HPI HPI Abnormal PFT: Details: 69-year-old gentleman, former approximately 30 pack-year smoker, quit 1995 with underlying history of pneumonia requiring decortication in 1995 now referred for evaluation of abnormal breathing test that showed moderate restrictive ventilatory defect, but no changes in diffusion capacity. His CT chest also demonstrates right-sided scarring likely related to prior thoracotomy. Patient complains of intermittent cough not associated with changing body position, sometimes worse at night. No underlying GERD symptoms. Patient denies prior other personal or family history of lung disease. He does complain of intermittent environmental allergies. [facility] Medical History Diabetes HLD (hyperlipidemia) HTN (hypertension) Anemia Surgical History S/P thoracotomy (~1995) History of surgical removal of pilonidal cyst Family History Son Substance use disorder Family/Other Mental health disorder Social History Housing: House Alcohol intake: former Patient Tobacco Use Status: Former Tobacco user e-Cigarette/Vaping Use: Never Used Second Hand Smoke Exposure: No service: No Current occupational status: employed Current occupation: [employer] Current occupational exposures/hazards: Yes Cognitive needs: No Hearing needs: No Vision needs: Yes Review of Systems Const Denies daytime sleepiness, Denies excessive sweating, Denies fatigue, Denies fever(s), Denies lethargy, Denies malaise, Denies night sweats, Denies snoring and Denies weight loss Eyes Denies blurry vision and Denies itchy eyes ENT Denies nasal congestion, Denies post nasal drip, Denies sinus pain, Denies sinus pressure and Denies other ( Thrush) Card Denies chest pain, Denies pedal edema, Denies dyspnea, Denies orthopnea and Denies paroxysmal nocturnal dyspnea Resp Denies cough, Denies hemoptysis, Denies excessive phlegm production, Denies dyspnea, Denies snoring and Denies wheezing GI Denies abdominal pain and Denies heartburn Musc Denies myalgias, Denies arthralgias and Denies joint swelling Skin/Breast Denies rash Neuro Denies memory loss and Denies seizure-like activity Psych Denies abnormal sleep pattern, Denies anxiety and Denies memory loss Endo Denies excessive sweating, Denies fatigue and Denies heat intolerance Saroj/Lymph Denies easy bruising Aller/Immun Denies itchy eyes, Denies seasonal rhinorrhea and Denies wheezing Physical Exam Vital Signs: Last Vital Signs Pulse 88 10/31/24 10:38 BP 122/67 10/31/24 10:38 Pulse Ox 98 10/31/24 10:38 Oxygen Delivery Method Room Air 10/31/24 10:38 BMI result Body Mass Index 77.9 Const General: no acute distress and alert Nutritional Appearance: not obese Orientation/consciousness: Other orientation findings ( oriented) HEENT Head: Yes atraumatic Eyes General: appearance normal, both eyes and all related structures Sclerae: sclerae normal EOM: EOMs intact bilaterally Neck Neck: Yes supple Lymphatic: no lymphadenopathy noted Resp Effort & Inspection: normal respiratory effort and no use of accessory muscles Auscultation: clear to auscultation bilaterally Cardio Rate: regular rate Rhythm: regular rhythm Heart sounds: no gallops, no murmurs and no rubs Skin General skin exam: other ( warm) Extrem General: No clubbing, No cyanosis and No edema Assessment & Plan Assessment & Plan (1) Restrictive ventilatory defect: Code(s): R94.2 - Abnormal results of pulmonary function studies Category: Medical Plan: Likely related to prior history of thoracotomy for empyema. (2) Cough: Code(s): R05.9 - Cough, unspecified Category: Medical Plan: Unclear etiology with intermittent symptoms. Start on as needed albuterol MDI. 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 Orders: Orders CT chest wo IV con 10/21/25 J98.4 - Other disorders of lung Complete Blood Count Auto Diff Today R05.9 - Cough, unspecified Resp Allergy Profile Region I Today R05.9 - Cough, unspecified Coding Level of Care Code New Pt Level 4 (49560) Diagnoses Restrictive ventilatory defect R94.2 Cough R05.9 Pulmonary scarring J98.4
--- OUTSIDE RECORDS SUMMARY | 2024-10-31 11:46 | XMS_ITS | Patient Health Record ---
Author Organization [facility] Address [address] [place] [address] Care Team Providers Care Foreign Diplomat Name Role Phone SHANTA ESPARZA Primary Care Provider Dain Brown Unavailable [phone] ALLERGIES No Known Allergies REASON FOR REFERRAL No Information MEDICATIONS Medication SIG (Take, Route, Frequency, Duration) Notes Start Date End Date Status metFORMIN HCl 1000 MG take 1 tablet by m outh twice a day with meals Oral for 30 Active Multivitamin Adults 50+ Active Tresiba FlexTouch 100 UNIT/ML Subcutaneous for 90 Active Atorvastatin Calcium 20 MG Oral for 30 Active Aspir-Low 81 MG Oral for 30 Ac tive Lisinopril 2.5 MG Oral for 30 Active Jardiance 1 tablet Orally Once a day Active SOCIAL HISTORY Tobacco Use: Social History Observation Description Date Details (start date - stop date) Former Smoker NA - NA Sex Assigned At : Social History Observation Description Sex Assigned At Unknown Tobacco Use/Smoking Question Answer Notes Patient is a former smoker When did you stop smoking? quit 1995 How long has it been since you last smoked? > 10 years Alcohol Screen Question Answer Notes Did you have a drink containing alcohol in the p ast year? No Points 0 Interpretation Negative PROBLEMS Problem Type ICD Code Onset Dates Problem Status W/U Status Risk SNOMED Code Notes Problem Encounter for screening for malignant neoplasm of colon (Z12.11) Active confirmed 963323211 Problem Preprocedural examination (Z01.818) Active confirmed 041964745 Problem History of adenomatous polyp of colon (Z86.010) Active confirmed 507825419 Problem Diverticulosis of colon (K57.30) Active confirmed Diverticulosi s of colon (978317168) PLAN OF TREATMENT Pending Test Test Name Order Date Pathology 05/03/2023 Future Test Test Name Order Date COLONOSCOPY 06/29/2017 COLONOSCOPY 02/18/2023 Insurance Providers Payer Name Payer Address Payer Phone Subscriber Number Group Number Insured Name Patient Relationship to Insured Coverage Start Date Coverage End Date AARP MEDI COMPLETE (REFERRAL REQUIRED) [address] [address] [place] [address] [phone] [id number] SAIGE COURTNEY Self - patient is the insured MEDICARE OF [place] [address] [place] [address] [phone] [id number] COURTNEY MOULTON Self - patient is the insured MEDICAL (GENERAL) HISTORY Medical History History ICD Code IDDM Denies [place],CVA,Lung disease,renal disease HTN Hyperlipidemia Colonoscopy 10/2017 with removal of 1 sma ll tubuilar adenoma Surgical History Surgery Date(Month/Year) Pilonidal cyst x 3 Right thoracotomy for a pneumonia 1995 Skin cancers on left UE, back, and left ear
--- OUTSIDE RECORDS SUMMARY | 2024-10-31 11:46 | XMS_ITS ---
Author Organization [facility] Address [address] [place] [address] Care Team Providers Care Supervisor Grounds Name Role Phone SHANTA ESPARZA Primary Care Provider Dinh e Dain Dunham Unavailable [phone] REASON FOR VISIT screening,hx polyps PROBLEMS Problem Type ICD Code Onset Dates Problem Status W/U Status Risk SNOMED Code Notes Problem Diverticulosis of colon (K57.30) Active confirmed Diverticulosi s of colon (828008804) Encounters Encounter Location Date Provider Diagnosis [facility] Outpatient [address] [place] [address] [id number] 05/03/2023 Dain Dunham Colon cancer scree josé miguel Z12.11 ; Colon polyp K63.5 ; Diverticulosis of colon K57.30 and Internal hemorrhoids K64.8 ASSESSMENTS Encounter Date Diagnosis Assessment Notes Treatment Notes Treatment Clinical Notes 05/03/2023 Colon cancer screening (ICD-10 - Z12.11) 05/03/2023 Colon polyp (ICD-10 - K63.5) 05/03/2023 Diverticulosis of colon (ICD-10 - K57.30) 05/03/2023 Internal hemorrhoids (ICD-10 - K64.8) PLAN OF TREATMENT No Information
== END 2024-10-31 11:06 | disposition home or self-care (01) ==
PROVIDERS: PCP Nurse Practitioner Family; Visit Provider Internal Medicine Pulmonary Disease
DX: R94.2 Abnormal results of pulmonary function studies (principal); R05.9 Cough, unspecified; J98.4 Other disorders of lung
CPT/HCPCS: 99214

== ENCOUNTER → 2024-10-31 10:37 | Outpatient (BNVA) | payer MEDICARE, SELFPAY | PROVIDERS: PCP Nurse Practitioner Family; Visit Provider Internal Medicine Pulmonary Disease | DX: R94.2 Abnormal results of pulmonary function studies (principal); R05.9 Cough, unspecified; J98.4 Other disorders of lung; Z87.891 Personal history of nicotine dependence | CPT/HCPCS: 99212 ==

== ENCOUNTER 2024-11-06 09:54 | Outpatient (REF) | payer MEDICARE, SELFPAY ==
--- NOTE | ~2024-11-06 | XR_ITS ---
EXAMINATION: XR KNEE 1-2 VIEWS RIGHT HISTORY: M25.561 - Pain in right knee COMPARISON: There are no prior studies available for comparison. FINDINGS: AP and lateral views of the right knee are submitted. Osseous mineralization is normal. There is no fracture or dislocation. There is mild narrowing of the medial compartment. The soft tissues are unremarkable. There is no joint effusion. XR/XR knee RT 2V IMPRESSION: Mild narrowing of the medial compartment. Electronically signed by: Dain Champagne MD 11/07/2024 07:49 AM AMISHA
[2024-11-06 13:23] LABS: Appearance Urine Clear; Color Urine Yellow; Glucose Urine UA >=1000 mg/dL (Negative); Leukocyte Esterase Urine Negative (Negative); Nitrite Urine Negative (Negative); PH 5.5 (5.0-9.0); UMIC TRIGGER UACC YES; Urine Blood Negative (Negative); Urine Ketones Negative (Negative); Urine Protein Negative (Neg-Trace)
[2024-11-06 13:25] LABS: MANUAL DIFF FLAG NO
[2024-11-06 13:30] LABS: Bacteria Urine None Seen (None Seen); Hyaline Casts Urine 0-2 /LPF (0-2); RBC Urine 0-2 /HPF (0-2); Squamous Epithelial Cell Urine 0-2 /HPF (0-2); WBC Urine 0-5 /HPF (0-5)
[2024-11-06 13:36] LABS: Basophils Absolute Auto 0.1 X10*3/uL (0.0-0.2); Eosinophils Absolute Auto 0.3 X10*3/uL (0.0-0.4); Eosinophils Percent Auto 4.6 % (0-4); Hematocrit 40.6 % (42.0-52.0); Hemoglobin 12.9 g/dl (14.0-18.0); Imm Gran Abs Auto 0.01 X10*3/uL (0.00-0.03); Imm Gran Pct Auto 0.1 % (0.0-0.4); Lymphocytes Absolute Auto 2.4 X10*3/uL (1.2-4.9); Lymphocytes Percent Auto 35.1 % (20-40); Mean Corpuscular HGB Conc 31.8 g/dl (31.0-36.0); Mean Corpuscular Hemoglobin 28.6 pg (27.0-33.0); Mean Platelet Volume 10.7 fL (9.4-12.4); Monocytes Absolute Auto 0.5 X10*3/uL (0.1-1.2); Monocytes Percent Auto 6.8 % (2-11); Neutrophils Absolute Auto 3.5 x10*3/uL (2.0-8.3); Neutrophils Percent Auto 52.4 % (45-73); Platelet Count 167 X10*3/uL (160-400); Red Blood Count 4.51 X10*6/uL (4.60-5.80); Red Cell Distribution Width 13.9 % (11.0-16.0); White Blood Count 6.7 X10*3/uL (4.8-10.8)
[2024-11-06 14:45] LABS: Prostate Specific Antigen Scr 1.93 ng/mL (<0.05-4.0)
[2024-11-06 14:50] LABS: Alanine Aminotransferase 18 U/L (0-40); Albumin Level 4.1 g/dL (3.5-5.0); Anion Gap 12 (12-20); Aspartate Amino Transferase 26 U/L (5-37); Bilirubin Total 0.6 mg/dL (0.0-1.0); Blood Urea Nitrogen 13 mg/dL (9-16); Calcium 9.5 mg/dL (8.4-10.2); Carbon Dioxide 27 mmol/L (22-29); Chloride 108 mmol/L (96-108); Cholesterol 130 mg/dL (<200); Estimated Glomerular Filt Rate > 60; Glucose Fasting 74 mg/dL (60-99); HDL Cholesterol 28 mg/dL (>40); LDL Cholesterol Calculated 73 mg/dL (<100); Potassium 4.1 mmol/L (3.3-5.1); Sodium 143 mmol/L (135-145); TSH reflex Free T4 3.68 uIU/mL (0.32-4.0); Total Protein 7.4 g/dL (6.5-8.0); Triglycerides 147 mg/dL (<150)
[2024-11-06 17:24] LABS: Creatinine Urine 115.03 mg/dL; Microalbum/Creatinine Ratio Ur 5.2 ug/mg cr (<30)
[2024-11-06 18:25] LABS: Alkaline Phosphatase 74 U/L (39-117)
== END 2024-11-06 09:55 | disposition home or self-care (01) ==
LOC: HO.HMGCX 09:54
PROVIDERS: PCP Nurse Practitioner Family; Visit Provider Nurse Practitioner Family
DX: M25.561 Pain in right knee (principal); Z12.5 Encounter for screening for malignant neoplasm of prostate; E11.9 Type 2 diabetes mellitus without complications; E11.65 Type 2 diabetes mellitus with hyperglycemia
CPT/HCPCS: 36415; 73560; 80053; 80061; 81001; 82043; 82570; 84153; 84443; 85025

== ENCOUNTER → 2024-11-06 10:07 | Outpatient (BNV) | payer MEDICARE, SELFPAY | PROVIDERS: PCP Nurse Practitioner Family; Visit Provider Radiology Diagnostic Radiology | DX: R05.9 Cough, unspecified (principal) | CPT/HCPCS: 73560 ==

== ENCOUNTER 2024-11-17 14:05 | Outpatient (REF) | payer MEDICARE, SELFPAY ==
--- OUTSIDE RECORDS SUMMARY | 2024-11-17 14:07 | XMS_ITS | Patient Health Record ---
Author Organization [facility] Address [address] [place] [address] Care Team Providers Care House Cleaner Supervisor Name Role Phone SHANTA ESPARZA Primary Care Provider Dain Brown Unavailable [phone] ALLERGIES No Known Allergies REASON FOR REFERRAL [...] malignant neoplasm of colon (Z12.11) Active confirmed 965362959 Problem Preprocedural examination (Z01.818) Active confirmed 868816795 Problem History of adenomatous polyp of colon (Z86.010) Active confirmed 804734908 Problem Diverticulosis of colon (K57.30) Active confirmed Diverticulosi s of colon (786210957) PLAN OF TREATMENT Pending Test Test Name Order Date Pathology 05/03/2023 Future Test Test Name Order Date COLONOSCOPY 06/29/2017 COLONOSCOPY 02/18/2023 Insurance Providers Payer Name Payer Address Payer Phone Subscriber Number Group Number Insured Name Patient Relationship to Insured Coverage Start Date Coverage End Date AARP MEDI COMPLETE (REFERRAL REQUIRED) [address] [address] [place] [address] [id number] SAIGE COURTNEY Self - patient is the insured MEDICARE OF [place] [address] [place] [address] [id number] COURTNEY MOULTON Self - patient is the insured MEDICAL (GENERAL) HISTORY Medical History History ICD Code IDDM Denies [place],CVA,Lung disease,renal disease HTN Hyperlipidemia Colonoscopy 10/2017 with removal of 1 sma ll tubuilar adenoma Surgical History Surgery Date(Month/Year) Pilonidal cyst x 3 Right thoracotomy for a pneumonia 1995 Skin cancers on left UE, back, and left ear
[2024-11-17 16:20] LABS: Appearance Urine Clear; Color Urine Yellow; Glucose Urine UA >=1000 mg/dL (Negative); Leukocyte Esterase Urine Negative (Negative); Nitrite Urine Negative (Negative); PH 6.5 (5.0-9.0); UMIC TRIGGER UACC YES; Urine Blood Negative (Negative); Urine Ketones Negative (Negative); Urine Protein Negative (Neg-Trace)
[2024-11-17 16:26] LABS: Bacteria Urine None Seen (None Seen); Hyaline Casts Urine 0-2 /LPF (0-2); RBC Urine 0-2 /HPF (0-2); Squamous Epithelial Cell Urine 0-2 /HPF (0-2); WBC Urine 0-5 /HPF (0-5)
[2024-11-17 16:28] LABS: Immature Retic Fraction 15.9 % (2.3-13.4); Retic HGB Equivalent 32.1 pg (30.0-35.0); Reticulocyte Percent 1.3 % (0.5-1.8); Reticulocytes Absolute 0.059 X10*6/uL (0.026-0.095)
[2024-11-17 16:47] LABS: Iron 106 mcg/dL (45-160); Lactate Dehydrogenase 184 U/L (118-273); Percent Iron Saturation 32 % (15-50); Total Iron Binding Capacity 332 mcg/dL (228-428); Unsaturated Iron Binding 226 ug/dL
[2024-11-17 16:56] LABS: Ferritin 24 ng/mL (20-250)
[2024-11-17 17:14] LABS: Folate 16.6 ng/mL (> or = 4.0); Vitamin B12 490 pg/mL (200-900)
== END 2024-11-17 14:06 | disposition home or self-care (01) ==
LOC: HO.HMGCLDS 14:05
PROVIDERS: PCP Nurse Practitioner Family; Visit Provider Nurse Practitioner Family
DX: E11.65 Type 2 diabetes mellitus with hyperglycemia (principal); D64.9 Anemia, unspecified
CPT/HCPCS: 36415; 81001; 82607; 82728; 82746; 83540; 83615; 85045

== ENCOUNTER 2025-02-19 08:55 | Outpatient (AMB) | payer MEDICARE, SELFPAY ==
--- NOTE | 2025-02-19 08:59 | MHC.PC.OV ---
Vital Signs 02/19/25 09:01 Height 6 ft 1 in Weight 269 lb BMI 35.5 BP 110/76 Blood Pressure Location Rt brachial Position Sitting Pulse 77 Pulse Source Pulse Oximeter Temp 97.9 F Temp Source Oral Pulse Oximetry (%) 98 Oxygen Delivery Method Room Air Intake Visit Reasons: 4m follow up Allergies No Known Allergies [No Known Allergies*] Allergy (Verified 10/31/24 10:44) Medication List - Last Reconciled 02/19/25 by TAMMY Monae- aspirin 81 mg PO DAILY 90 days atorvastatin 80 mg PO DAILY blood sugar diagnostic ([employer] Verio test strips) 1 strip miscellaneous TID blood-glucose meter ([employer] Verio Reflect Meter) As directed cholecalciferol (vitamin D3) 25 mcg PO DAILY empagliflozin 25 mg PO DAILY insulin degludec (Tresiba FlexTouch U-100 insulin) 58 units (0.58 mL) subcut DAILY lancets ([employer] Delica Plus Lancet) 30 gauge miscellaneous BID lisinopril 2.5 mg PO DAILY 90 days metformin 1,000 mg PO BID 90 days multivitamin (Daily Multi-Vitamin tablet) 1 tab PO DAILY pen needle, diabetic (BD Ultra-Fine Mini Pen Needle) 1 ea miscellaneous DAILY 90 days Tobacco use date assessed: 10/23/24 Fall risk assessment: 1 Fall in past year Last assessed Fall Risk: 02/19/25 Dental Screening Dental Screen Date: 02/19/25 Did you have a dental visit in the last 12 months?: No Did you have a dental problem in the last 6 months where you did not have access to dental care?: No Was dental information given to patient?: Patient declined HPI 4m follow up HPI Details Chief Complaint Routine follow-up for diabetes management. History of Present Illness The patient is a 69-year-old male presenting for a routine diabetes follow-up. He has been managing Type 2 Diabetes Mellitus, with an A1c of 6.3%. He reports adherence to medication and dietary management. He denies neuropathy, polyuria, and polyphagia symptoms. Sensory testing via monofilament is intact, with noted onychomycosis and overgrown nails. Past microalbumin levels are current, and respiratory systems show no concerns. 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 Social History - Currently managing diabetes through dietary control and medication compliance. - Non-smoker, no alcohol use reported. - No mention of employment, housing, or family status. Health Maintenance - Diabetes control assessed with A1c of 6.3%. - Microalbumin test is current. - Regular monitoring and dietary management for diabetes. Review of Systems - Neurological: Denies neuropathy. - Genitourinary: Denies polyuria. - Endocrine: Denies polyphagia. Physical Exam General: Cooperative, healthy appearing, comfortable, no acute distress and well developed, obese Orientation: Patient oriented x3 Limitations: No limitations Head: Normal to inspection Ears: Hearing grossly normal bilaterally Nose: Normal external nose present Face and sinus: Normal facial exam Eyes: Appearance normal, both eyes and all related structures Neck: Normal visual inspection and Yes full ROM Respiratory: Normal respiratory effort and able to speak in complete sentences. Clear to auscultation bilaterally Cardiovascular: Regular rate and rhythm. Normal S1 and S2. No carotid bruits noted GI: Normal to inspection. Soft to palpation and nontender Skin: No rashes or lesions noted. Onychomycosis noted with overgrown nails Neuro: Patient oriented x3 Extremities: Normal to inspection. Hot sensation with use of monofilament to feet. Feet were intact Results - Labs: A1c level of 6.3%. - Labs: Microalbumin levels up to date. Plan 6 .3% indicating good control. Importance of routine blood glucose monitoring, consistent diet, and medication adherence was emphasized. Foot care was advised due to onychomycosis, with a recommendation for regular podiatric care. A follow-up is planned in six months.: Discussion Notes During the consultation, discussions centered on the notable control of diabetes with a current A1c of 6.3%. I highlighted the benefits of continued use of current medications and the dietary regimen in place, emphasizing the positive effect these have had on his glycemic levels. The patient was advised about routine monitoring and potential signs of neuropathy, and he was encouraged to continue healthcare assessments as scheduled. The importance of managing onychomycosis to prevent complications was stressed, with advice to seek podiatric care as needed. The patient was informed regarding the next follow-up in six months, should there be no new concerns. Patient Instructions - Keep taking diabetes medications as prescribed. - Monitor blood sugar levels regularly. - Stick to your diet plan for diabetes management. - Observe foot hygiene, and see a strategic insights lead for nail care. - Come back for your next appointment in six months. - Contact the clinic if you notice any change in your symptoms or have new concerns. [facility] Medical History Diabetes HLD (hyperlipidemia) HTN (hypertension) Anemia Surgical History S/P thoracotomy (~1995) History of surgical removal of pilonidal cyst Family History Son Substance use disorder Family/Other Mental health disorder Social History Housing: House Alcohol intake: former Patient Tobacco Use Status: Former Tobacco user e-Cigarette/Vaping Use: Never Used Second Hand Smoke Exposure: No service: No Current occupational status: employed Current occupation: [employer] Current occupational exposures/hazards: Yes Cognitive needs: No Hearing needs: No Vision needs: Yes Questionnaire PHQ-9 Over the last 2 weeks, how often have you been bothered by any of the following problems? 1. Little interest or pleasure in doing things: nearly every day 2. Feeling down, depressed, or hopeless: not at all 3. Trouble falling or staying asleep, or sleeping too much: nearly every day 4. Feeling tired or having little energy: nearly every day 5. Poor appetite or overeating: not at all 6. Feeling bad about yourself - or that you are a failure or have let yourself or your family down: not at all 7. Trouble concentrating on things, such as reading the newspaper or watching television: not at all 8. Moving or speaking so slowly that other people could have noticed. Or the opposite - being so fidgety or restless that you have been moving around a lot more than usual: not at all 9. Thoughts that you would be better off or of hurting yourself in some way: not at all Total score: 9 Depression Screening Interpretation: Positive (declines therapist/meds) Depression Screening Follow-up: Existing condition Depression Screening Done: Yes 83973 - PHQ-9 Billing: Yes Source: Developed by Drs. Dain Scott, Aruna Mcfarland, Andrea Mir and colleagues, with an educational briana from [employer]. Thrive Questionnaire Date Thrive assessed: 02/19/25 I am a: Patient What is your living situation today?: I choose not to answer this question Within the past 12 months, did the food you bought not last and you didn't have the money to get more?: I choose not to answer this question Within the past 12 months, did you worry whether your food would run out before you got money to buy more?: I choose not to answer this question Do you have trouble paying for medicines?: I choose not to answer this question Do you have trouble getting transportation to medical appointments?: I choose not to answer this question Do you have trouble paying your heating and electricity bill?: I choose not to answer this question Do you have trouble taking care of your child, family member or friend?: I choose not to answer this question Do you have trouble with day-to-day activities such as bathing, preparing meals, shopping, managing finances, etc.?: I choose not to answer this question Are you currently unemployed and looking for a job?: I choose not to answer this question Are you interested in more education?: I choose not to answer this question Please select the resources that you would like help with: None Currently or been in a relationship where the following occur: I choose not to answer THRIVE Score: 0 AUDIT C Alcohol Use Questionnaire (AUDIT-C) 1. How often do you have a drink containing alcohol?: Never 3. How often do you have six or more drinks on one occasion?: Never Total Score: 0 Score Reviewed/Action Taken: Yes PAULINA-7 AMB Questionnaire PAULINA-7 Date PAULINA - 7 assessed: 02/19/25 Feeling nervous, anxious, or on edge: 0 = Not at all Not being able to stop or control worryin = Not at all Worrying too much about different things: 0 = Not at all Trouble relaxin = Not at all Being so restless that it is hard to sit still: 0 = Not at all Becoming easily annoyed or irritable: 0 = Not at all Feeling afraid as if something awful might happen: 0 = Not at all Total PAULINA-7 score (0-4 normal; 5-9 mild; 10-14 moderate; 15-21 severe): 0 Source: Developed by Drs. Dain Scott, Aruna Mcfarland, Andrea Mir and colleagues, with an educational briana from [employer]. PAULINA-7 Assessment Billing PAULINA-7 Assessment Tool: PAULINA-7 Assessment 14885 Physical exam (Primary Care) Vital Signs: Last Vital Signs Temp 97.9 F 02/19/25 09:01 Pulse 77 02/19/25 09:01 BP 110/76 02/19/25 09:01 Pulse Ox 98 02/19/25 09:01 Oxygen Delivery Method Room Air 02/19/25 09:01 BMI result Body Mass Index 35.5 Tobacco/Smoking Status: Tobacco use Status Tobacco use date assessed 10/23/24 02/19/25 09:00 Patient Tobacco Use Status Former Tobacco user 02/19/25 09:00 e-Cigarette/Vaping Use Never Used 02/19/25 09:00 PHQ-9: PHQ-9 Score PHQ-9: Total score 9 02/19/25 09:09 Depression Screening Interpretation: Positive (declines therapist/meds) Depression Screening Follow-up: Existing condition Thrive Assessment: Date of Thrive Assessment Date Thrive assessed 02/19/25 02/19/25 09:09 Currently or been in a relationship where the following occur: I choose not to answer Results AMB Hemoglobin A1c AMB Hemoglobin A1c 6.3 % Last Edit by Balbir Echeverria CMA on 02/19/25 09:19 Results Reviewed Results Reviewed: Laboratory Last Values Hgb A1c (Clinic) 6.3 % (4.0-6.0) H 02/19/25 09:18 Coding Level of Care Code Est Pt Level 3 (15436) Diagnoses Diabetes E11.9 Additional Codes PAULINA-7 Assessment Billing - PAULINA-7 Assessment Tool: PAULINA-7 Assessment 63091 ([id number]) PHQ-9 - 16844 - PHQ-9 Billing: Yes ([id number]) Assessment & Plan Assessment & Plan (1) Diabetes: Code(s): E11.9 - Type 2 diabetes mellitus without complications Category: Medical Plan . Orders: Orders Complete Blood Count Auto Diff Today E11.9 - Type 2 diabetes mellitus without complications TSH reflex Free T4 Today E11.9 - Type 2 diabetes mellitus without complications UA CC w/rflx Micro + Cult Today E11.9 - Type 2 diabetes mellitus without complications Lipid Panel Today E11.9 - Type 2 diabetes mellitus without complications Comprehensive [place]on. Panel Fast Today E11.9 - Type 2 diabetes mellitus without complications AMB Hemoglobin A1c Today Z13.9 - Encounter for screening, unspecified
[2025-02-19 09:01] VITALS: BP 110/76; PULSE 77; TEMP 36.6; O2SAT 98; BMI 35.5
--- OUTSIDE RECORDS SUMMARY | 2025-02-19 09:04 | XMS_ITS | Patient Health Record ---
Author Organization [facility] Address [address] [place] [address] Care Team Providers Care Turret Lathe Operator Name Role Phone SHANTA ESPARZA Primary Care Provider Dain Brown Unavailable [phone] Allergies No Known Allergies Reason For Referral No Information Medications Medication SIG (Take, Route, Frequency, Duration) Notes [...] 1 tablet Orally Once a day Active Social History Tobacco Use: Social History Observation Description Date Details (start date - stop date) Former Smoker NA - NA Tobacco Use/Smoking Question Answer Notes Patient is a former smoker When did you stop smoking? quit 1995 How long has it been since you last smoked? > 10 years Alcohol Screen Question Answer Notes Did you have a drink containing alcohol in the p ast year? No Points 0 Interpretation Negative Section Notes: Nonsmoker since 1995; no alc ohol since 2014--heavy before that Nonsmoker since 1995; no alc ohol since 2014--heavy before that Problems Problem Type SNOMED Code ICD Code Onset Dates Problem Status W/U Status Risk Notes Problem 035164992 Encounter for screening for malignant neoplasm of colon (Z12.11) Active confirmed Problem 626480570 History of adenomatous polyp of colon (Z86.010) Active confirmed Problem 651943588 Preprocedural examination (Z01.818) Active confirmed Problem Diverticulosis of colon (572428081) Diverticulosis of colon (K57.30) Active confirmed Plan Of Treatment Pending Test Test Name Order Date Pathology 05/03/2023 Future Test Test Name Order Date COLONOSCOPY 06/29/2017 COLONOSCOPY 02/18/2023 Insurance Providers Payer Name Payer Address Payer Phone Subscriber Number Group Number Insured Name Patient Relationship to Insured Coverage Start Date Coverage End Date [employer] MEDI COMPLETE (REFERRAL REQUIRED) [address] [address] [place] [address] [id number] COURTNEY MOULTON Self - patient is the insured MEDICARE OF [place] [address] [place] [address] [id number] COURTNEY MOULTON Self - patient is the insured Medical (General) History Medical History History ICD Code IDDM Denies [place],CVA,Lung disease,renal disease HTN Hyperlipidemia Colonoscopy 10/2017 with removal of 1 sma ll tubuilar adenoma Surgical History Surgery Date(Month/Year) Pilonidal cyst x 3 Right thoracotomy for a pneumonia 1995 Skin cancers on left UE, back, and left ear
== END 2025-02-19 09:34 | disposition home or self-care (01) ==
LOC: HO.HMCC 08:55
PROVIDERS: PCP Nurse Practitioner Family; Visit Provider Nurse Practitioner Family
DX: E11.9 Type 2 diabetes mellitus without complications (principal); Z13.9 Encounter for screening, unspecified

== ENCOUNTER → 2025-02-19 08:55 | Outpatient (BNVA) | payer MEDICARE, SELFPAY | PROVIDERS: PCP Nurse Practitioner Family; Visit Provider Nurse Practitioner Family | DX: E11.9 Type 2 diabetes mellitus without complications (principal) | CPT/HCPCS: 83036; 96127; 99212 ==

== ENCOUNTER 2025-06-05 11:53 | Outpatient (REF) | payer MEDICARE, SELFPAY ==
[2025-06-05 12:59] LABS: MANUAL DIFF FLAG NO
[2025-06-05 12:59] LABS: Appearance Urine Clear; Glucose Urine UA >=1000 mg/dL (Negative); PH 5.5 (5.0-9.0); Specific Gravity - Urine 1.020 (1.005-1.025); UMIC TRIGGER UACC YES
[2025-06-05 13:14] LABS: Hematocrit 39.8 % (42.0-52.0); Hemoglobin 12.8 g/dl (14.0-18.0); Imm Gran Abs Auto 0.02 X10*3/uL (0.00-0.03); Imm Gran Pct Auto 0.3 % (0.0-0.4); Lymphocytes Absolute Auto 1.9 X10*3/uL (1.2-4.9); Mean Corpuscular HGB Conc 32.2 g/dl (31.0-36.0); Mean Corpuscular Hemoglobin 28.7 pg (27.0-33.0); Mean Corpuscular Volume 89.2 fL (80.0-98.0); NRBC Abs Auto 0.000 X10*3/uL (0.0-0.012); NRBC Pct Auto 0.0 /100WBC (0.0-0.2); Platelet Count 177 X10*3/uL (160-400); Red Blood Count 4.46 X10*6/uL (4.60-5.80); White Blood Count 5.9 X10*3/uL (4.8-10.8)
[2025-06-05 13:48] LABS: Alanine Aminotransferase 19 U/L (0-40); Albumin Level 4.3 g/dL (3.5-5.0); Alkaline Phosphatase 79 U/L (39-117); Anion Gap 13 (12-20); Aspartate Amino Transferase 22 U/L (5-37); Blood Urea Nitrogen 14 mg/dL (9-16); Calcium 9.1 mg/dL (8.4-10.2); Carbon Dioxide 25 mmol/L (22-29); Chloride 109 mmol/L (96-108); Cholesterol 113 mg/dL (<200); Estimated Glomerular Filt Rate > 60; HDL Cholesterol 26 mg/dL (>40); Potassium 4.2 mmol/L (3.3-5.1); Sodium 143 mmol/L (135-145); Total Protein 7.0 g/dL (6.5-8.0); Triglycerides 129 mg/dL (<150)
== END 2025-06-05 11:54 | disposition home or self-care (01) ==
LOC: HO.HMGCLDS 11:53
PROVIDERS: PCP Nurse Practitioner Family; Visit Provider Nurse Practitioner Family
DX: E11.9 Type 2 diabetes mellitus without complications (principal)
CPT/HCPCS: 36415; 80053; 80061; 81001; 84443; 85025

== ENCOUNTER 2025-07-09 08:00 | Outpatient (AMB) | payer MEDICARE, SELFPAY ==
--- OUTSIDE RECORDS SUMMARY | 2025-07-09 08:04 | XMS_ITS | Patient Health Record ---
Author Organization [facility] Address [address] [place] [address] Care Team Providers Care Videogame Tester Name Role Phone SHANTA ESPARZA Primary Care Provider Dain Brown Unavailable [phone] Allergies No Known Allergies Reason For Referral [...] Problem Status W/U Status Risk Notes Problem 746659072 Encounter for screening for malignant neoplasm of colon (Z12.11) Active confirmed Problem 021588501 History of adenomatous polyp of colon (Z86.010) Active confirmed Problem 521654633 Preprocedural examination (Z01.818) Active confirmed Problem Diverticulosis of colon (155889703) Diverticulosis of colon (K57.30) Active confirmed Plan Of Treatment Pending Test Test Name Order Date Pathology 05/03/2023 Future Test Test Name Order Date COLONOSCOPY 06/29/2017 COLONOSCOPY 02/18/2023 Insurance Providers Payer Name Payer Address Payer Phone Subscriber Number Group Number Insured Name Patient Relationship to Insured Coverage Start Date Coverage End Date A[employer] MEDI COMPLETE (REFERRAL REQUIRED) [address] [address] [place] [address] [id number] COURTNEY MOULTON Self - patient is the insured MEDICARE OF [place] [address] [place] [address] [id number] COURTNEY MOULTON Self - patient is the insured Medical (General) History Medical History History ICD Code IDDM Denies [place],CVA,Lung disease,renal disease HTN Hyperlipidemia Colonoscopy 10/2017 with removal of 1 sma ll tubuilar adenoma Surgical History Surgery Date(Month/Year) Pilonidal cyst x 3 Right thoracotomy for a pneumonia 1995 Skin cancers on left UE, back, and left ear
[2025-07-09 08:07] VITALS: BP 130/80; PULSE 79; RESP 16; O2SAT 97; BMI 35.1
--- NOTE | 2025-07-09 08:07 | A.OFFPC_ITS ---
Vital Signs 07/09/25 08:07 Height 6 ft 1 in Weight 266 lb BMI 35.1 BP 130/80 Blood Pressure Location Lt brachial Position Sitting Respiration 16 Pulse 79 Pulse Source Pulse Oximeter Pulse Oximetry (%) 97 Intake Visit Reasons: PE Document Imaging Specialist Required: No Accompanied by: Self / Same As Patient Allergies No Known Allergies (No Known Allergies*) Allergy (Verified 07/09/25 08:49) Medication List - Last Reconciled 07/09/25 by TAMMY Monae- aspirin 81 mg PO DAILY 90 days atorvastatin 80 mg PO DAILY blood sugar diagnostic ([employer] Verio test strips) 1 strip miscellaneous TID blood-glucose meter ([employer] Verio Reflect Meter) As directed cholecalciferol (vitamin D3) 25 mcg PO DAILY empagliflozin 25 mg PO DAILY insulin degludec (Tresiba FlexTouch U-100 insulin) 58 units (0.58 mL) subcut DAILY lancets ([employer]opol[employer]Touch Delica Plus Lancet) 30 gauge miscellaneous BID lisinopril 2.5 mg PO DAILY 90 days metformin 1,000 mg PO BID 90 days multivitamin (Daily Multi-Vitamin tablet) 1 tab PO DAILY pen needle, diabetic 1 ea miscellaneous DAILY 90 days Tobacco use date assessed: 07/09/25 Fall risk assessment: No Falls in past year Last assessed Fall Risk: 07/09/25 Dental Screening Dental Screen Date: 07/09/25 Did you have a dental visit in the last 12 months?: Yes Did you have a dental problem in the last 6 months where you did not have access to dental care?: No HPI PE HPI Details History of Present Illness The patient is a 69-year-old male presenting for a physical examination and diabetes management. He reports feeling well and denies any chest pain, shortness of breath, abdominal pain, blood in stool, constipation, diarrhea, or urinary issues. His colon cancer screening and PSA are up to date, and he has undergone a diabetic eye exam recently. The patient has a history of diabetes mellitus, with a current A1c of 6.1, indicating good control. He denies any neuropathy and has positive sensation in bilateral extremities as confirmed by monofilament testing. He checks his blood glucose levels at least twice daily and is aware of the signs and symptoms of hypoglycemia. Onychomycosis was noted on his feet during the examination. Health Maintenance - Colon cancer screening is up to date - PSA screening is up to date - Diabetic eye exam is up to date Social History Review of Systems - Cardiovascular: Denies chest pain - Respiratory: Denies shortness of breat h - Gastrointestinal: Denies abdominal emeli n, blood in stool, constipation, diarrhea - Genitourinary: Denies urinary issues - Neurological: Denies neuropathy Physical Exam General: Cooperative, healthy appearing, comfortable, no acute distress and well developed Orientation: Patient oriented x3 Limitations: No limitations Head: Normal to inspection Ears: Hearing grossly normal bilaterally Nose: Normal external nose present Face and sinus: Normal facial exam Eyes: Appearance normal, both eyes and all related structures Neck: Normal visual inspection and Yes full ROM Respiratory: Normal respiratory effort and able to speak in complete sentences. Clear to auscultation bilaterally Cardiovascular: Regular rate and rhythm. Normal S1 and S2 GI: Normal to inspection. Soft to palpation and nontender Neuro: Patient oriented x3 Extremities: Positive sensation with use of monofilament to bilateral extremities. Feet were intact except for onychomycosis noted. Results - Labs: Hemoglobin A1c is 6.1 Plan 1. Diabetes Mellitus The patient will continue with his current diabetic regimen, including monitoring blood glucose levels at least twice daily. He is educated on recognizing and managing hypoglycemia. Repeat laboratory tests are planned for the next few months to monitor his condition. 2. Onychomycosis Onychomycosis was noted on examination, and management options were discussed. Discussion Notes I discussed with the patient the importance of continuing his current diabetic regimen and monitoring his blood glucose levels regularly. We reviewed the signs and symptoms of hypoglycemia and how to manage them effectively. I advised him to repeat laboratory tests in the next few months to ensure continued management of his diabetes. Patient Instructions - Continue monitoring blood glucose [facility] at least twice daily. - Be aware of the signs and symptoms of hypoglycemia and know how to manage them. - Plan to repeat laboratory tests in the next few months. COUNT INCLUDES [facility] Medical History Diabetes HLD (hyperlipidemia) HTN (hypertension) Anemia Surgical History S/P thoracotomy (~1995) History of surgical removal of pilonidal cyst Family History Son Substance use disorder Family/Other Mental health disorder Social History Housing: House Alcohol intake: former Patient Tobacco Use Status: Former Tobacco user e-Cigarette/Vaping Use: Never Used Second Hand Smoke Exposure: No service: No Current occupational status: employed Current occupation: [employer] Current occupational exposures/hazards: Yes Cognitive needs: No Hearing needs: No Vision needs: Yes Questionnaire PHQ-9 Over the last 2 weeks, how often have you been bothered by any of the following problems? 1. Little interest or pleasure in doing things: not at all 2. Feeling down, depressed, or hopeless: not at all 3. Trouble falling or staying asleep, or sleeping too much: not at all 4. Feeling tired or having little energy: not at all 5. Poor appetite or overeating: not at all 6. Feeling bad about yourself - or that you are a failure or have let yourself or your family down: not at all 7. Trouble concentrating on things, such as reading the newspaper or watching television: not at all 8. Moving or speaking so slowly that other people could have noticed. Or the opposite - being so fidgety or restless that you have been moving around a lot more than usual: not at all 9. Thoughts that you would be better off or of hurting yourself in some way: not at all Total score: 0 Depression Screening Interpretation: Negative Depression Screening Done: Yes [id number] - PHQ-9 Billing: Yes Source: Developed by Drs. Dain Scott, Aruna Mcfarland, Andrea Mir and colleagues, with an educational briana from [employer]. Thrive Questionnaire Date Thrive assessed: 02/18/25 I am a: Patient What is your living situation today?: I choose not to answer this question Within the past 12 months, did the food you bought not last and you didn't have the money to get more?: I choose not to answer this question Within the past 12 months, did you worry whether your food would run out before you got money to buy more?: I choose not to answer this question Do you have trouble paying for medicines?: I choose not to answer this question Do you have trouble getting transportation to medical appointments?: I choose not to answer this question Do you have trouble paying your heating and electricity bill?: I choose not to answer this question Do you have trouble taking care of your child, family member or friend?: I choose not to answer this question Do you have trouble with day-to-day activities such as bathing, preparing meals, shopping, managing finances, etc.?: I choose not to answer this question Are you currently unemployed and looking for a job?: I choose not to answer this question Are you interested in more education?: I choose not to answer this question Please select the resources that you would like help with: None Currently or been in a relationship where the following occur: I choose not to answer THRIVE Score: 0 PAULINA-7 AMB Questionnaire PAULINA-7 Date PAULINA - 7 assessed: 07/09/25 Feeling nervous, anxious, or on edge: 0 = Not at all Not being able to stop or control worryin = Not at all Worrying too much about different things: 0 = Not at all Trouble relaxin = Not at all Being so restless that it is hard to sit still: 0 = Not at all Becoming easily annoyed or irritable: 0 = Not at all Feeling afraid as if something awful might happen: 0 = Not at all Total PAULINA-7 score (0-4 normal; 5-9 mild; 10-14 moderate; 15-21 severe): 0 Source: Developed by Drs. Dain Scott, Aruna Mcfarland, Andrea Mir and colleagues, with an educational briana from [employer]. Physical exam (Primary Care) Vital Signs: Last Vital Signs Pulse 79 07/09/25 08:07 Resp 16 07/09/25 08:07 BP 130/80 07/09/25 08:07 Pulse Ox 97 07/09/25 08:07 BMI result Body Mass Index 35.1 Tobacco/Smoking Status: Tobacco use Status Tobacco use date assessed 07/09/25 07/09/25 08:14 Patient Tobacco Use Status Former Tobacco user 07/09/25 08:08 e-Cigarette/Vaping Use Never Used 07/09/25 08:08 PHQ-9: PHQ-9 Score PHQ-9: Total score 0 07/09/25 08:15 Depression Screening Interpretation: Negative Thrive Assessment: Date of Thrive Assessment Date Thrive assessed 02/18/25 07/09/25 08:08 Currently or been in a relationship where the following occur: I choose not to answer Coding Level of Care Code Est Pt Level 3 (93529) Est Pt Prev Care >65y(18461) Diagnoses Diabetes E11.9 Screening PSA (prostate specific antigen) Z12.5 Physical exam Z00.00 Additional Codes PHQ-9 - 85509 - PHQ-9 Billing: Yes ([id number]) Assessment & Plan Assessment & Plan (1) Diabetes: Code(s): E11.9 - Type 2 diabetes mellitus without complications Category: Medical (2) Screening PSA (prostate specific antigen): Code(s): Z12.5 - Encounter for screening for malignant neoplasm of prostate Category: Medical (3) Physical exam: Code(s): Z00.00 - Encounter for general adult medical examination without abnormal findings Category: Medical Plan . Orders: Orders Complete Blood Count Auto Diff 4 Days E11.9 - Type 2 diabetes mellitus without complications TSH reflex Free T4 4 Days E11.9 - Type 2 diabetes mellitus without complications Prostate Specific Antigen Scr 4 Days E11.9 - Type 2 diabetes mellitus without complications Comprehensive [place]. Panel Fast 4 Days E11.9 - Type 2 diabetes mellitus without complications UA CC w/rflx Micro + Cult 4 Days E11.9 - Type 2 diabetes mellitus without complications Lipid Panel 4 Days E11.9 - Type 2 diabetes mellitus without complications Microalbumin 24 hr Urine 4 Days E11.9 - Type 2 diabetes mellitus without complications
== END 2025-07-09 08:48 | disposition home or self-care (01) ==
LOC: HO.HMCC 08:01
PROVIDERS: PCP Nurse Practitioner Family; Visit Provider Nurse Practitioner Family
DX: Z00.00 Encounter for general adult medical examination without abnormal findings (principal); E11.9 Type 2 diabetes mellitus without complications; Z12.5 Encounter for screening for malignant neoplasm of prostate

== ENCOUNTER → 2025-07-09 08:00 | Outpatient (BNVA) | payer MEDICARE, SELFPAY | PROVIDERS: PCP Nurse Practitioner Family; Visit Provider Nurse Practitioner Family | DX: Z00.00 Encounter for general adult medical examination without abnormal findings (principal); E11.9 Type 2 diabetes mellitus without complications | CPT/HCPCS: 83036; 96127; 99397 ==